=== PATIENT | male | born 1940 | race American Indian/Alaskan Native ===

== ENCOUNTER 2017-12-14 18:57 | Inpatient (IN) | payer OTHER ==
[2017-12-14 19:40] LABS: Basophils % (Auto) 0.2 % (0.0-1.8); Eosinophils % (Auto) 0.5 % (0.0-4.3); Hematocrit 46.8 % (35.5-45.6); Hemoglobin 14.7 gm/dl (11.8-15.2); Lymphocytes # (Auto) 0.8 K/mm3 (1.2-5.4); Lymphocytes % (Auto) 7.5 % (13.4-35.0); Mean Corpuscular HGB Conc 31 % (32-34); Mean Corpuscular Hemoglobin 28 pg (28-32); Mean Corpuscular Volume 90 fl (84-94); Monocytes % (Auto) 10.4 % (0.0-7.3); Platelet Count 114 K/mm3 (140-440); Red Blood Count 5.21 M/mm3 (3.65-5.03); Red Cell Distribution Width 16.3 % (13.2-15.2)
--- NOTE | 2017-12-14 20:25 | Emergency Department Report ---
Chief Complaint: Dyspnea/Respdistress Stated Complaint: DIFFICULTY BREATHING/SWELLING - HPI History of Present Illness: 77-year-old -Stateless male with a past medical history which appears to be CHF, hypertension, and diabetes. Comes in complaining of swelling of his testicles and lower extremities. He also complains of shortness of breathing. He reports he does not have a primary care provider. He reports he is not taking any medication. It appears that he was last seen here possibly in July. 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 - Exam Vital Signs: Vital Signs 12/14/17 19:13 Temperature 96.2 F L Pulse Rate 122 H Respiratory 22 Rate Blood Pressure 180/100 O2 Sat by Pulse 96 Oximetry Physical Exam: Gen. alert and oriented no acute distress but not able to complete sentences due to difficulty breathing. Cardiovascular. Tachycardic Respiratory. Decrease breath sounds bilateral with rails Abdomen soft and distended Extremities 3+ pitting edema to his thighs it appears that he has swelling of his testicles. Neuro alert and oriented Psych normal mood MSE screening note: Focused history and physical exam performed. Due to findings the following was ordered: Patient is appropriate to be seen in the main ER. ED Medical Decision Making - Lab Data Result diagrams: 12/14/17 19:25 ED Disposition for MSE Condition: Stable Referrals: LILIBETH HOLLINGSWORTH MD [Primary Care Provider] - 3-5 Days
[2017-12-14 20:29] LABS: Calcium 9.4 mg/dL (8.4-10.2)
[2017-12-14] MEDS ORDERED: NORMODYNE IV ONE (21:25)
--- NOTE | 2017-12-14 21:26 | Emergency Department Report ---
HPI - General Chief Complaint: Dyspnea/Respdistress Time Seen by Provider: 12/14/17 20:55 - HPI HPI: 77-year-old -[place] male presents to the emergency department, dropped off by a friend, with complaint of a 2 to three-day history of some shortness of breath that worsens with exertion and even longer lower extremity swelling. The patient has a history of not seeing a physician for many years until he was here and admitted for similar symptoms in July 2017. At that point the patient was found to have CHF with severe systolic dysfunction and dilated cardiomyopathy. Patient presents with very elevated blood sugar and does admit to a history of [id number] diabetes but says this was also discovered during his last visit. He is on warfarin but he does not of the reason why but his EKG today shows atrial fibrillation which may or may not be new, but does not match his previous EKG here. He denies any chest pain. He does not have a primary care physician or a supply person. He did not take anything for his symptoms prior to presentation. No recent travel or sick contacts at home. ED Past Medical Hx - Past Medical History Previous Medical History?: Yes Hx Hypertension: Yes Hx Diabetes: Yes - Surgical History Past Surgical History?: No - Social History Smoking Status: Never Smoker - Medications Home Medications: Home Medications Medication Instructions Recorded Confirmed Last Taken Type Amiodarone [Cordarone 200 MG TAB] 200 mg PO BID #60 tablet 07/27/17 Unknown Rx Aspirin [Aspirin BABY CHEW TAB] 81 mg PO QDAY #30 tab.chew 07/27/17 Unknown Rx Carvedilol [Coreg] 12.5 mg PO BID #60 tablet 07/27/17 Unknown Rx Furosemide [Lasix TAB] 40 mg PO QDAY #30 tablet 07/27/17 Unknown Rx Metolazone [Zaroxolyn] 5 mg PO QDAY #30 tablet 07/27/17 Unknown Rx Potassium Chloride [K-Dur] 20 meq PO QDAY #30 tablet 07/27/17 Unknown Rx Valsartan [Diovan] 160 mg PO BID #60 tablet 07/27/17 Unknown Rx Warfarin [Coumadin] 5 mg PO DAILY@1700 #30 tablet 07/27/17 Unknown Rx glipiZIDE [Glucotrol] 2.5 mg PO BIDDIAB #60 tablet 07/27/17 Unknown Rx hydrALAZINE [Apresoline TAB] 25 mg PO Q8HR #90 tablet 07/27/17 Unknown Rx ED Review of Systems ROS: Stated complaint: DIFFICULTY BREATHING/SWELLING Other details as noted in HPI Comment: All other systems reviewed and negative Constitutional: denies: chills, fever Eyes: denies: eye pain, eye discharge, vision change ENT: denies: ear pain, throat pain Respiratory: cough, shortness of breath, SOB with exertion Cardiovascular: edema. denies: chest pain Gastrointestinal: denies: abdominal pain, nausea, diarrhea Genitourinary: denies: urgency, dysuria Musculoskeletal: denies: back pain, joint swelling, arthralgia Skin: denies: rash, lesions Neurological: denies: headache, weakness, paresthesias Physical Exam - Physical Exam Vital Signs: Vital Signs 12/14/17 19:13 Temperature 96.2 F L Pulse Rate 122 H Respiratory 22 Rate Blood Pressure 180/100 O2 Sat by Pulse 96 Oximetry Physical Exam: GENERAL: The patient is well-developed well-nourished. HENT: Normocephalic. Atraumatic. Patient has moist mucous membranes. EYES: Extraocular motions are intact. Pupils equal reactive to light bilaterally. NECK: Supple. Trachea is midline. CHEST/LUNGS: Slightly coarse breath sounds. Tachypnea but no accessory muscle use. There is no respiratory distress noted. HEART/CARDIOVASCULAR: Irregularly irregular with tachycardia ABDOMEN: Abdomen is soft, nontender. Patient has normal bowel sounds. There is no abdominal distention. SKIN: 2+ pitting edema to the bilateral lower extremities. NEURO: The patient is awake, alert. The patient is cooperative. The patient has no focal neurologic deficits. The patient has normal speech. MUSCULOSKELETAL: There is no tenderness or deformity. There is no evidence of acute injury. ED Course Vital Signs 12/14/17 19:13 Temperature 96.2 F L Pulse Rate 122 H Respiratory 22 Rate Blood Pressure 180/100 O2 Sat by Pulse 96 Oximetry ED Medical Decision Making - Lab Data Result diagrams: 12/14/17 19:25 12/15/17 01:42 - EKG Data -: EKG Interpreted by Me - EKG Data When compared to previous EKG there are: changes noted (previous EKG was a sinus rhythm) Interpretation: other (atrial fibrillation with RVR at 104 bpm, incomplete right branch block, left anterior fascicular block, Q waves to the septal leads) - Radiology Data Radiology results: report reviewed, image reviewed interpreted by me: Chest x-ray shows cardiomegaly and ectatic aorta that is unchanged from July 2017. EXAM: NM LUNG SCAN PERF/VENT HISTORY: SOB, elevated dimer COMPARISON: Chest x-ray from the same date. TECHNIQUE: 15 millicuries xenon 133 given for the ventilation portion exam. 5 millicuries technetium 99 M MAA given for the perfusion portion of the study. FINDINGS: Mild heterogeneous uptake of tracer in both the ventilation and perfusion portions of the exam. No mismatched defect. IMPRESSION: Low probability exam for pulmonary embolus. Transcribed By: LMA Dictated By: LEANN BECK MD Electronically Authenticated By: LEANN BECK MD Signed Date/Time: 12/15/17 0018 - Medical Decision Making Patient presents with some shortness of breath and lower extremity swelling. He has a history of CHF and appears to be in a exacerbation of the CHF. Chest x -ray does not show any convincing pleural effusions but the patient does have 2- 3+ pitting edema to the bilateral lower extremities and a BNP of greater than 17 ,000. During his evaluation, the patient was also found to have hyperglycemia with a blood sugar greater than 500. He has an anion gap of about 25 and has some venous acidosis and all this is concerning for diabetic ketoacidosis. The patient was started on an insulin drip and will be admitted to the ICU. He had some hyperkalemia of 5.8 and went up to 6.3 but it has started to come down with the insulin drip, albuterol nebulized treatments, Kayexalate. The patient appears to be in atrial fibrillation based on his irregular rhythm and his EKG. There is no previous record of atrial fibrillation but the patient is on warfarin for an unknown reason and I suspect it is based on this. The patient will be admitted to the ICU and has been accepted for admission by the hospitalist, Dr. Clark. - Differential Diagnosis DKA, HHNK, CHF, PE, DE Critical Care Time: No Critical care attestation.: If time is entered above; I have spent that time in minutes in the direct care of this critically ill patient, excluding procedure time. ED Disposition Clinical Impression: Hypertensive urgency CHF exacerbation Qualifiers: Heart failure type: systolic Qualified Code(s): I50.23 - Acute on chronic systolic (congestive) heart failure DKA (diabetic ketoacidoses) Qualifiers: Diabetes mellitus type: type 2 Diabetes mellitus complication detail: without coma Qualified Code(s): E11.10 - Type 2 diabetes mellitus with ketoacidosis without coma Atrial fibrillation Qualifiers: Atrial fibrillation type: unspecified Qualified Code(s): I48.91 - Unspecified atrial fibrillation Disposition: 09 OP ADMIT IP TO THIS HOSP Is pt being admited?: Yes Condition: Fair Time of Disposition: 03:58
[2017-12-14] MEDS ORDERED: D50W (25GM) Syringe IV PRN (21:33)
[2017-12-14 21:41] LABS: INR 1.52 (0.87-1.13); Partial Thromboplastin Time 30.2 Sec. (24.2-36.6)
--- NOTE | 2017-12-14 21:57 | XRay Report ---
FINAL REPORT EXAM: XR CHEST ROUTINE 2V HISTORY: Shortness of breath TECHNIQUE: PA and lateral chest radiographs PRIORS: None. FINDINGS: No mediastinal shift. Cardiomegaly and aortic tortuosity and likely ectasia are present. No pneumothorax, effusion, or focal pulmonary opacity. No acute skeletal finding. IMPRESSION: No acute pulmonary finding. Cardiomegaly and aortic tortuosity and likely ectasia.
[2017-12-14] MEDS ORDERED: HumuLIN R 100 UNITS in NACL 0.9% 99 ML IV SCH (22:00)
[2017-12-14 22:16] LABS: Chol/HDL Ratio 7.71 %
[2017-12-14] MEDS ORDERED: LASIX IV ONE (22:17)
[2017-12-14 23:25] LABS: Calcium 9.1 mg/dL (8.4-10.2)
[2017-12-15] MEDS ORDERED: KIONEX PO ONE ×2 (00:10→12:00)
[2017-12-15] MEDS ORDERED: PROVENTIL IH ONE (00:10)
[2017-12-15] MEDS ORDERED: CALCIUM GLUCONATE 1,000 MG in NACL 0.9% 100 ML IV ONE (00:11)
--- NOTE | 2017-12-15 00:23 | Nuclear Medicine Report ---
FINAL REPORT EXAM: NM LUNG SCAN PERF/VENT HISTORY: SOB, elevated dimer COMPARISON: Chest x-ray from the same date. TECHNIQUE: 15 millicuries xenon 133 given for the ventilation portion exam. 5 millicuries technetium 99 M MAA given for the perfusion portion of the study. FINDINGS: Mild heterogeneous uptake of tracer in both the ventilation and perfusion portions of the exam. No mismatched defect. IMPRESSION: Low probability exam for pulmonary embolus.
[2017-12-15] MEDS ORDERED: ZOFRAN IV PRN (02:18)
[2017-12-15] MEDS ORDERED: TYLENOL PR PRN (02:26)
[2017-12-15] MEDS: HEPARIN SUB-Q SCH ×2 (03:57→17:00)
[2017-12-15 04:11] LABS: Blood Urea Nitrogen TNR mg/dL (9-20)
[2017-12-15 04:12] LABS: BUN/Creatinine Ratio TNR; Calcium TNR mg/dL (8.4-10.2); Hemolysis Index TNR
[2017-12-15] MEDS: D5/0.45NS 1,000 ML IV SCH ×2 (04:57→13:55)
[2017-12-15 05:08] LABS: Calcium 8.5 mg/dL (8.4-10.2)
[2017-12-15 05:09] LABS: Creatine Kinase MB 7.5 ng/mL (0.0-4.0)
--- NOTE | 2017-12-15 06:14 | History and Physical Report ---
CHIEF COMPLAINT: Shortness of breath. HISTORY OF PRESENTING ILLNESS: The patient is a 77-year-old male came in with about 2-3 day history of shortness of breath that is worse with exertion. Also, the patient complained of swelling of the lower extremity up to the perineal area involving the scrotum. The patient denies any chest pain. He said that he is on warfarin and also has some palpitations, which he attributed to his history of irregular heartbeat. The patient denies history of fever. Denies history of chills, nausea or vomiting. PAST MEDICAL HISTORY: Pertinent for hypertension, diabetes mellitus, congestive heart failure, irregular heartbeat. PAST SURGICAL HISTORY: Not known. FAMILY HISTORY: Noncontributory. SOCIAL HISTORY: The patient lives with family. Does not smoke, does not drink alcohol and does not use illicit drugs. MEDICATIONS: The patient is on amiodarone 200 mg by mouth twice daily, aspirin 81 mg by mouth daily, Coreg 12.5 mg by mouth twice daily, Lasix 40 mg by mouth daily, metolazone Zaroxolyn 5 mg by mouth daily, potassium chloride 20 mEq by mouth daily, Diovan 160 mg by mouth twice daily, Coumadin 5 mg by mouth daily, glipizide 2.5 mg by mouth twice daily, hydralazine 25 mg by mouth every 8 hours. ALLERGIES: There are no known drug allergies. REVIEW OF SYSTEMS: CONSTITUTIONAL: There is no fever, no chills, no diaphoresis. HEENT: There is headache or sore throat. CARDIOVASCULAR: There is no chest pain, ____ orthopnea. RESPIRATORY: There is shortness of breath. No cough. GASTROINTESTINAL: There is no nausea, no vomiting, no abdominal pain, diarrhea or constipation. NEUROLOGICAL: There is no numbness, no dizziness, no altered mental status. MUSCULOSKELETAL: There is no joint pain, but there is swelling of the lower extremities. DERMATOLOGICAL: There is no skin rash or itching. GENITOURINARY: There is no dysuria, hematuria or flank pain. Rest of system review is normal. PHYSICAL EXAMINATION: GENERAL: At the time of exam, the patient was found to be alert, oriented x 3 and not in acute distress. VITAL SIGNS: Shows temperature of 96.2 degrees Fahrenheit, pulse of 98, respirations 18, blood pressure 180/100, O2 sat of 96% of oxygen. HEENT: Showed pupils to be equal, round, reactive to light and accommodation. Extraocular muscles are intact. NECK: Supple with no JVD or carotid bruit. CARDIOVASCULAR: Showed normal first and second heart sounds with irregularly irregular rhythm with no murmurs. RESPIRATORY SYSTEM: Showed good air entry on both sides of the lungs with bibasilar rales. GASTROINTESTINAL SYSTEM: Show abdomen to be soft, nontender, no organomegaly or rigidity. NEUROLOGIC: Shows no focal deficits. MUSCULOSKELETAL: Shows swelling of both lower extremity up to the thigh level. DERMATOLOGICAL: Show no skin rash. GENITOURINARY: Show no costovertebral angle tenderness. PERTINENT LABORATORY AND IMAGING STUDIES: The patient has CBC done with normal white count, normal hemoglobin and slightly elevated hematocrit of 46.8 with CBC differential showing elevated monocyte count and elevated segmented neutrophils. Coagulation studies show slightly elevated INR of 1.52 with elevated D-dimer of 5303. The patient's ABG showed a low pH of 7.28 with chemistry showing low sodium of 129, elevated potassium level of 6.3, low chloride of 91, low CO2 of 19, BUN of 62 with creatinine of 1.8 and elevated blood glucose of 483. The patient's anion gap is about 19. The patient's magnesium levels show elevated value of 2.5 and the patient's troponin levels show a high value of 0.055 and brain natriuretic peptide level is elevated with a value of 17,105. IMAGING STUDIES: The patient has VQ scan done that shows low probability for pulmonary embolism and also the patient had chest x-ray shows cardiomegaly with aortic toxicity, which the radiologist says is likely an ectasia. DIAGNOSES: 1. Diabetic ketoacidosis. 2. Congestive heart failure exacerbation. 3. Hyperkalemia. 4. Atrial fibrillation with rate control. PLAN: The patient will be admitted to ICU and we will continue IV insulin drip protocol for treating DKA. The patient will be on Accu-Chek every hour and will have basic metabolic panel checked every ____ hours. The patient will continue on IV normal saline, insulin drip. The patient's fluid will be changed to D5 normal. When the blood glucose is below 250 mg/dL. The patient has already received a dose of Kayexalate in the Emergency Room, also has received 1 gram of calcium gluconate in the Emergency Room for treatment of hyperkalemia and the patient's potassium level will be monitored using basic metabolic panel to see if this is trending downwards. The patient will be on IV Lasix 40 mg daily for management of CHF and will be on nitro paste half-inch to anterior chest wall q. 6 hours. The patient will have cardiac enzymes, troponin level and CPK checked every 6 hours x 2 more level. The patient will have complete echocardiogram done in the morning and he will be on IV Zofran 4 mg every 8 hours for nausea and vomiting and Tylenol 650 mg rectally every 4 hours for fever and headache. The patient will remain n.p.o. until DKA is corrected and the patient's home medications will be reconciled and applied later on. JOB# [id number] OCN/NTS
[2017-12-15] MEDS: NITRO-BID 2% TP SCH ×3 (06:37→17:41)
[2017-12-15 08:39] LABS: Calcium 8.8 mg/dL (8.4-10.2)
[2017-12-15 09:28] LABS: BUN/Creatinine Ratio 43; Blood Urea Nitrogen 39 mg/dL (9-20); Hemolysis Index 10
[2017-12-15 09:54] LABS: Calcium 4.8 mg/dL (8.4-10.2)
[2017-12-15] MEDS ORDERED: LASIX IV SCH (10:00)
--- NOTE | 2017-12-15 10:42 | Event Note ---
Date: 12/15/17 Patient seen and examined. An additional 34 minutes spent after the patient was admitted this morning. We will continue the plan as outlined in the H&P. Patient still exhibits findings consistent with DKA. Restart IV insulin drip and continue IV fluid hydration. Patient will receive Kayexalate for the hyperkalemia. Additionally, patient will receive IV calcium for the hypocalcemia. Check ionized calcium levels. Follow-up the echocardiogram for the CHF.
[2017-12-15] MEDS ORDERED: CALCIUM GLUCONATE 2,000 MG in NACL 0.9% 100 ML IV ONE (12:00)
[2017-12-15 13:03] LABS: Creatine Kinase MB 4.9 ng/mL (0.0-4.0)
--- NOTE | 2017-12-15 13:32 | Consultation ---
History of Present Illness - Reason for Consult Consult date: 12/15/17 (pt was seen nad examined in ER. Consult dictated) Medications and Allergies Allergies Allergy/AdvReac Type Severity Reaction Status Date / Time No Known Allergies Allergy Verified 07/21/17 22:45 Home Medications Medication Instructions Recorded Confirmed Last Taken Type No Known Home Medications [No 12/15/17 12/15/17 Unknown History Reported Home Medications] Active Meds: Active Medications Acetaminophen (Tylenol) 650 mg KS Q4H PRN PRN Reason: For Pain/Fever/Headache Dextrose (D50w (25gm) Syringe) 0 ml IV PRN PRN PRN Reason: Hypoglycemia Furosemide (Lasix) 40 mg IV DAILY JOIE Last Admin: 12/15/17 09:42 Dose: 40 mg Heparin Sodium (Porcine) (Heparin) 5,000 unit SUB-Q Q12HR JOIE Last Admin: 12/15/17 03:57 Dose: 5,000 unit Insulin Human Regular 100 (units/ Sodium Chloride) 100 mls @ 5 mls/hr IV TITR JOIE; Protocol Last Titration: 12/15/17 12:30 Dose: 0 units/hr, 0 mls/hr Dextrose/Sodium Chloride (D5/0.45ns) 1,000 mls @ 125 mls/hr IV DIRECT JOIE Last Admin: 12/15/17 04:57 Dose: 125 mls/hr Nitroglycerin (Nitro-Bid 2%) 1 inch TP TIDNTG JOIE; Protocol Last Admin: 12/15/17 11:41 Dose: 1 inch Ondansetron HCl (Zofran) 4 mg IV Q8H PRN PRN Reason: Nausea And Vomiting Exam - Constitutional Vitals: Temp Pulse Resp BP Pulse Ox 98.6 F 90 18 156/102 98 12/15/17 08:02 12/15/17 12:00 12/15/17 12:00 12/15/17 12:00 12/15/17 12:00 Results - Labs CBC & Chem 7: 12/14/17 19:25 12/15/17 09:05 Labs: Abnormal lab results 12/14/17 12/14/17 12/14/17 Range/Units 19:25 20:01 20:01 RBC 5.21 H (3.65-5.03) M/mm3 Hct 46.8 H (35.5-45.6) % MCHC 31 L (32-34) % RDW 16.3 H (13.2-15.2) % Plt Count 114 L (140-440) K/mm3 Lymph % (Auto) 7.5 L (13.4-35.0) % [place] % (Auto) 10.4 H (0.0-7.3) % Lymph # 0.8 L (1.2-5.4) K/mm3 [place] # 1.0 H (0.0-0.8) K/mm3 Seg Neutrophils % 81.4 H (40.0-70.0) % Seg Neutrophils # 8.2 H (1.8-7.7) K/mm3 PT (12.2-14.9) Sec. INR (0.87-1.13) D-Dimer (0-234) ng/mlDDU VBG pH (7.320-7.420) Sodium 128 L (137-145) mmol/L Potassium 5.8 H (3.6-5.0) mmol/L Chloride 92.4 L (98-107) mmol/L Carbon Dioxide 18 L (22-30) mmol/L BUN 62 H (9-20) mg/dL Creatinine 1.7 H (0.8-1.5) mg/dL Glucose 507 H* (75-100) mg/dL POC Glucose (70-105) Calcium (8.4-10.2) mg/dL Magnesium (1.7-2.3) mg/dL Total Creatine Kinase (55-170) units/L CK-MB (CK-2) (0.0-4.0) ng/mL CK-MB (CK-2) Rel Index (0-4) Troponin T (0.00-0.029) ng/mL NT-Pro-B Natriuret Pep 76844 H (0-900) pg/mL HDL Cholesterol (40-59) mg/dL 12/14/17 12/14/17 12/14/17 Range/Units 21:15 21:15 21:19 RBC (3.65-5.03) M/mm3 Hct (35.5-45.6) % MCHC (32-34) % RDW (13.2-15.2) % Plt Count (140-440) K/mm3 Lymph % (Auto) (13.4-35.0) % [place] % (Auto) (0.0-7.3) % Lymph # (1.2-5.4) K/mm3 [place] # (0.0-0.8) K/mm3 Seg Neutrophils % (40.0-70.0) % Seg Neutrophils # (1.8-7.7) K/mm3 PT 19.2 H (12.2-14.9) Sec. INR 1.52 H (0.87-1.13) D-Dimer (0-234) ng/mlDDU VBG pH 7.288 L (7.320-7.420) Sodium (137-145) mmol/L Potassium (3.6-5.0) mmol/L Chloride (98-107) mmol/L Carbon Dioxide (22-30) mmol/L BUN (9-20) mg/dL Creatinine (0.8-1.5) mg/dL Glucose (75-100) mg/dL POC Glucose (70-105) Calcium (8.4-10.2) mg/dL Magnesium (1.7-2.3) mg/dL Total Creatine Kinase (55-170) units/L CK-MB (CK-2) (0.0-4.0) ng/mL CK-MB (CK-2) Rel Index (0-4) Troponin T 0.055 H (0.00-0.029) ng/mL NT-Pro-B Natriuret Pep (0-900) pg/mL HDL Cholesterol 14 L (40-59) mg/dL 12/14/17 12/14/17 12/14/17 Range/Units 22:11 22:11 22:17 RBC (3.65-5.03) M/mm3 Hct (35.5-45.6) % MCHC (32-34) % RDW (13.2-15.2) % Plt Count (140-440) K/mm3 Lymph % (Auto) (13.4-35.0) % [place] % (Auto) (0.0-7.3) % Lymph # (1.2-5.4) K/mm3 [place] # (0.0-0.8) K/mm3 Seg Neutrophils % (40.0-70.0) % Seg Neutrophils # (1.8-7.7) K/mm3 PT (12.2-14.9) Sec. INR (0.87-1.13) D-Dimer 5306.46 H (0-234) ng/mlDDU VBG pH (7.320-7.420) Sodium 128 L (137-145) mmol/L Potassium 5.9 H (3.6-5.0) mmol/L Chloride 89.8 L (98-107) mmol/L Carbon Dioxide 17 L (22-30) mmol/L BUN 62 H (9-20) mg/dL Creatinine 1.7 H (0.8-1.5) mg/dL Glucose 483 H (75-100) mg/dL POC Glucose (70-105) Calcium (8.4-10.2) mg/dL Magnesium 2.50 H (1.7-2.3) mg/dL Total Creatine Kinase (55-170) units/L CK-MB (CK-2) (0.0-4.0) ng/mL CK-MB (CK-2) Rel Index (0-4) Troponin T (0.00-0.029) ng/mL NT-Pro-B Natriuret Pep (0-900) pg/mL HDL Cholesterol (40-59) mg/dL 12/14/17 12/15/17 12/15/17 Range/Units 22:54 00:35 01:42 RBC (3.65-5.03) M/mm3 Hct (35.5-45.6) % MCHC (32-34) % RDW (13.2-15.2) % Plt Count (140-440) K/mm3 Lymph % (Auto) (13.4-35.0) % [place] % (Auto) (0.0-7.3) % Lymph # (1.2-5.4) K/mm3 [place] # (0.0-0.8) K/mm3 Seg Neutrophils % (40.0-70.0) % Seg Neutrophils # (1.8-7.7) K/mm3 PT (12.2-14.9) Sec. INR (0.87-1.13) D-Dimer (0-234) ng/mlDDU VBG pH (7.320-7.420) Sodium 129 L 133 L (137-145) mmol/L Potassium 6.3 H* 5.5 H (3.6-5.0) mmol/L Chloride 91.0 L 92.4 L (98-107) mmol/L Carbon Dioxide 19 L (22-30) mmol/L BUN 62 H 63 H (9-20) mg/dL Creatinine 1.8 H 2.1 H (0.8-1.5) mg/dL Glucose 483 H 327 H (75-100) mg/dL POC Glucose 425 H (70-105) Calcium (8.4-10.2) mg/dL Magnesium (1.7-2.3) mg/dL Total Creatine Kinase (55-170) units/L CK-MB (CK-2) (0.0-4.0) ng/mL CK-MB (CK-2) Rel Index (0-4) Troponin T (0.00-0.029) ng/mL NT-Pro-B Natriuret Pep (0-900) pg/mL HDL Cholesterol (40-59) mg/dL 12/15/17 12/15/17 12/15/17 Range/Units 02:12 03:10 04:24 RBC (3.65-5.03) M/mm3 Hct (35.5-45.6) % MCHC (32-34) % RDW (13.2-15.2) % Plt Count (140-440) K/mm3 Lymph % (Auto) (13.4-35.0) % [place] % (Auto) (0.0-7.3) % Lymph # (1.2-5.4) K/mm3 [place] # (0.0-0.8) K/mm3 Seg Neutrophils % (40.0-70.0) % Seg Neutrophils # (1.8-7.7) K/mm3 PT (12.2-14.9) Sec. INR (0.87-1.13) D-Dimer (0-234) ng/mlDDU VBG pH (7.320-7.420) Sodium (137-145) mmol/L Potassium (3.6-5.0) mmol/L Chloride (98-107) mmol/L Carbon Dioxide (22-30) mmol/L BUN (9-20) mg/dL Creatinine (0.8-1.5) mg/dL Glucose (75-100) mg/dL POC Glucose 407 H 238 H 167 H (70-105) Calcium (8.4-10.2) mg/dL Magnesium (1.7-2.3) mg/dL Total Creatine Kinase (55-170) units/L CK-MB (CK-2) (0.0-4.0) ng/mL CK-MB (CK-2) Rel Index (0-4) Troponin T (0.00-0.029) ng/mL NT-Pro-B Natriuret Pep (0-900) pg/mL HDL Cholesterol (40-59) mg/dL 12/15/17 12/15/17 12/15/17 Range/Units 04:30 04:30 04:30 RBC (3.65-5.03) M/mm3 Hct (35.5-45.6) % MCHC (32-34) % RDW (13.2-15.2) % Plt Count (140-440) K/mm3 Lymph % (Auto) (13.4-35.0) % [place] % (Auto) (0.0-7.3) % Lymph # (1.2-5.4) K/mm3 [place] # (0.0-0.8) K/mm3 Seg Neutrophils % (40.0-70.0) % Seg Neutrophils # (1.8-7.7) K/mm3 PT (12.2-14.9) Sec. INR (0.87-1.13) D-Dimer (0-234) ng/mlDDU VBG pH (7.320-7.420) Sodium 135 L (137-145) mmol/L Potassium 5.1 H (3.6-5.0) mmol/L Chloride (98-107) mmol/L Carbon Dioxide 17 L (22-30) mmol/L BUN 61 H (9-20) mg/dL Creatinine 1.7 H (0.8-1.5) mg/dL Glucose 175 H (75-100) mg/dL POC Glucose (70-105) Calcium (8.4-10.2) mg/dL Magnesium (1.7-2.3) mg/dL Total Creatine Kinase 181 H (55-170) units/L CK-MB (CK-2) 7.5 H (0.0-4.0) ng/mL CK-MB (CK-2) Rel Index 4.1 H (0-4) Troponin T 0.045 H (0.00-0.029) ng/mL NT-Pro-B Natriuret Pep 99565 H (0-900) pg/mL HDL Cholesterol (40-59) mg/dL 12/15/17 12/15/17 12/15/17 Range/Units 05:31 07:40 08:51 RBC (3.65-5.03) M/mm3 Hct (35.5-45.6) % MCHC (32-34) % RDW (13.2-15.2) % Plt Count (140-440) K/mm3 Lymph % (Auto) (13.4-35.0) % [place] % (Auto) (0.0-7.3) % Lymph # (1.2-5.4) K/mm3 [place] # (0.0-0.8) K/mm3 Seg Neutrophils % (40.0-70.0) % Seg Neutrophils # (1.8-7.7) K/mm3 PT (12.2-14.9) Sec. INR (0.87-1.13) D-Dimer (0-234) ng/mlDDU VBG pH (7.320-7.420) Sodium 135 L (137-145) mmol/L Potassium 7.8 H* D (3.6-5.0) mmol/L Chloride 97.7 L (98-107) mmol/L Carbon Dioxide (22-30) mmol/L BUN 62 H (9-20) mg/dL Creatinine (0.8-1.5) mg/dL Glucose (75-100) mg/dL POC Glucose 117 H 143 H (70-105) Calcium (8.4-10.2) mg/dL Magnesium (1.7-2.3) mg/dL Total Creatine Kinase (55-170) units/L CK-MB (CK-2) (0.0-4.0) ng/mL CK-MB (CK-2) Rel Index (0-4) Troponin T (0.00-0.029) ng/mL NT-Pro-B Natriuret Pep (0-900) pg/mL HDL Cholesterol (40-59) mg/dL 03/12/15/17 12/15/17 Range/Units 09:05 09:59 11:03 RBC (3.65-5.03) M/mm3 Hct (35.5-45.6) % MCHC (32-34) % RDW (13.2-15.2) % Plt Count (140-440) K/mm3 Lymph % (Auto) (13.4-35.0) % [place] % (Auto) (0.0-7.3) % Lymph # (1.2-5.4) K/mm3 [place] # (0.0-0.8) K/mm3 Seg Neutrophils % (40.0-70.0) % Seg Neutrophils # (1.8-7.7) K/mm3 PT (12.2-14.9) Sec. INR (0.87-1.13) D-Dimer (0-234) ng/mlDDU VBG pH (7.320-7.420) Sodium 135 L (137-145) mmol/L Potassium 7.7 H* (3.6-5.0) mmol/L Chloride 82.7 L (98-107) mmol/L Carbon Dioxide 13 L D (22-30) mmol/L BUN 39 H (9-20) mg/dL Creatinine (0.8-1.5) mg/dL Glucose (75-100) mg/dL POC Glucose 151 H 118 H (70-105) Calcium 4.8 L* D (8.4-10.2) mg/dL Magnesium (1.7-2.3) mg/dL Total Creatine Kinase (55-170) units/L CK-MB (CK-2) (0.0-4.0) ng/mL CK-MB (CK-2) Rel Index (0-4) Troponin T (0.00-0.029) ng/mL NT-Pro-B Natriuret Pep (0-900) pg/mL HDL Cholesterol (40-59) mg/dL 12/15/17 Range/Units 12:20 RBC (3.65-5.03) M/mm3 Hct (35.5-45.6) % MCHC (32-34) % RDW (13.2-15.2) % Plt Count (140-440) K/mm3 Lymph % (Auto) (13.4-35.0) % [place] % (Auto) (0.0-7.3) % Lymph # (1.2-5.4) K/mm3 [place] # (0.0-0.8) K/mm3 Seg Neutrophils % (40.0-70.0) % Seg Neutrophils # (1.8-7.7) K/mm3 PT (12.2-14.9) Sec. INR (0.87-1.13) D-Dimer (0-234) ng/mlDDU VBG pH (7.320-7.420) Sodium (137-145) mmol/L Potassium (3.6-5.0) mmol/L Chloride (98-107) mmol/L Carbon Dioxide (22-30) mmol/L BUN (9-20) mg/dL Creatinine (0.8-1.5) mg/dL Glucose (75-100) mg/dL POC Glucose (70-105) Calcium (8.4-10.2) mg/dL Magnesium (1.7-2.3) mg/dL Total Creatine Kinase (55-170) units/L CK-MB (CK-2) 4.9 H (0.0-4.0) ng/mL CK-MB (CK-2) Rel Index 4.4 H (0-4) Troponin T 0.030 H D (0.00-0.029) ng/mL NT-Pro-B Natriuret Pep (0-900) pg/mL HDL Cholesterol (40-59) mg/dL
[2017-12-15 14:16] LABS: Calcium 8.9 mg/dL (8.4-10.2)
[2017-12-15 15:50] LABS: Bilirubin,Urine NEG (Negative); Blood,Urine SM (Negative); Color,Urine Yellow (Yellow); Protein,Urine <15 mg/dL mg/dL (Negative); Urobilinogen,Urine < 2.0 mg/dL (<2.0)
[2017-12-15 15:55] LABS: Chloride, Urine 116.5 mmolL (110-250); Creatinine,Urine 17.4 mg/dL (0.1-20.0); Potassium, Urine 21.23 mmol/L
[2017-12-15 16:06] LABS: Calcium 9.2 mg/dL (8.4-10.2)
[2017-12-15 18:32] LABS: BUN/Creatinine Ratio TNR; Blood Urea Nitrogen TNR mg/dL (9-20)
[2017-12-15 18:33] LABS: Calcium TNR mg/dL (8.4-10.2); Hemolysis Index TNR
--- NOTE | 2017-12-15 21:18 | Consultation ---
REASON FOR CONSULTATION: Hyperkalemia and Acute renal failure. HISTORY OF PRESENT ILLNESS: This 77-year-old -[place] male with history of diabetes, hypertension, congestive heart failure, was brought to the Emergency Room for having shortness of breath and swelling of the lower extremities including his scrotal area. The patient is a poor historian, unable to obtain details. The patient denies seeing any primary care physicians or web site developer. PAST MEDICAL HISTORY: Diabetes, hypertension, congestive heart failure. FAMILY HISTORY: No family history of kidney failure. PERSONAL HISTORY: Denies smoking, alcohol, or drug abuse. ALLERGIES: No known allergies. HOME MEDICATIONS: Amiodarone 200 mg p.o. b.i.d., aspirin 81 mg a day, carvedilol 12.5 mg b.i.d., furosemide 40 mg a day, metolazone 5 mg a day, potassium chloride 20 mEq a day, valsartan 160 mg twice a day, warfarin 5 mg a day, glipizide 2.5 mg b.i.d., hydralazine 25 mg q.8h. REVIEW OF SYSTEMS: Denies chest pain at present time. Denies difficulty swallowing. Denies fever or chills. Denies abdomen pain, nausea, or vomiting. Complains of swelling of the legs. Other review of systems reviewed and negative. PHYSICAL EXAMINATION: GENERAL: The patient is alert, oriented to place, well-developed male. VITAL SIGNS: Blood pressure 156/102, pulse 90, afebrile. HEENT: Normocephalic. Pupils reactive. Oral mucosa dry. Lips noncyanotic. NECK: No JVD, no thyroid enlargement. No cervical lymph nodes palpable. LUNGS: Diminished breath sounds in bases. HEART: S1, S2 irregular. No pericardial rub. ABDOMEN: Soft, bowel sounds present, nontender. No masses palpable. EXTREMITIES: 3+ pitting edema, able to move all extremities. LABORATORY DATA: From 12/14/2017, sodium 129, potassium 6.3, chloride 91, CO2 19, BUN 62, creatinine 1.8, glucose 483. BNP 17,105. Labs from this morning, sodium 135, potassium 7.7, chloride 82, CO2 13, BUN 39, creatinine 0.9, glucose 118, calcium 4.8. No urine studies available at present time. ASSESSMENT AND PLAN: 1. Hyperkalemia. 2. Acute renal failure, most likely prerenal azotemia. 3. Diabetic ketoacidosis. 4. Hypocalcemia, rule out lab error. 5. Anasarca. 6. Congestive heart failure. Check echocardiogram. 7. Atrial fibrillation. 8. Hypertension, uncontrolled. Optimize blood pressure medications. The patient is on IV insulin drip, received Kayexalate. Follow up on potassium levels closely. Check magnesium and ionized calcium levels. Check urine studies as ordered. Adjust medications per renal function. Suggest IV diuretics with IV furosemide. Thank you for the consultation. JOB# [id number] BRYCE/DAVIDE FALLON
[2017-12-15 22:34] LABS: Calcium 8.5 mg/dL (8.4-10.2)
[2017-12-16] MEDS: HumuLIN R SUB-Q SCH ×3 (02:15→06:56)
[2017-12-16 05:56] LABS: Basophils % (Auto) 0.1 % (0.0-1.8); Eosinophils # (Auto) 0.1 K/mm3 (0.0-0.4); Eosinophils % (Auto) 0.5 % (0.0-4.3); Hematocrit 39.7 % (35.5-45.6); Hemoglobin 13.1 gm/dl (11.8-15.2); Lymphocytes # (Auto) 0.6 K/mm3 (1.2-5.4); Lymphocytes % (Auto) 5.4 % (13.4-35.0); Mean Corpuscular HGB Conc 33 % (32-34); Mean Corpuscular Hemoglobin 28 pg (28-32); Mean Corpuscular Volume 86 fl (84-94); Monocytes # (Auto) 1.2 K/mm3 (0.0-0.8); Monocytes % (Auto) 11.6 % (0.0-7.3); Red Cell Distribution Width 15.8 % (13.2-15.2)
[2017-12-16 06:05] LABS: Platelet Count 90 K/mm3 (140-440)
[2017-12-16] MEDS: HEPARIN SUB-Q SCH ×2 (06:38→09:35)
[2017-12-16 06:41] LABS: Calcium 8.6 mg/dL (8.4-10.2)
[2017-12-16] MEDS: NITRO-BID 2% TP SCH (06:45)
--- NOTE | 2017-12-16 09:07 | Progress Note ---
Assessment and Plan Assessment and plan: Patient is a 77-year-old man with a history of hypertension, is independent diabetes mellitus, dilated cardiomyopathy, CHF and atrial fibrillation on warfarin who presented with shortness of breath and was found to be DKA and started on insulin drip. He was downgraded from ICU to medical floor stopped overnight (will review orders) Portable chest x-ray read as no acute findings VQ scan is read as low probability PE History Interval history: Patient was seen and examined. Follow-up on current diagnosis of DKA. Overnight uneventful. Patient denies any chest pain, shortness breath, nausea/ vomiting or severe headaches. Imaging, nursing note, chart, labs and old chart reviewed. Discussed with patient. Pt seen sleeping and laying flat on one pillow (?chf). He does have BLE pitting edema. In the Acute medical floor, not on insulin drip or in ICU. I do not know the details, please refer to Dr. Ilya Abdi, who cared for patient yesterday. Hospitalist Physical - Physical exam Narrative exam: GEN: WDWN, NAD, AWAKE, ALERT, ORIENTATED 3 HEENT: NCAT, EOMI, PERRL, OP Clear NECK: supple, no adenopathy, no thyromegaly, equivocal JVD CVS/HEART: irregular irregular, NORMAL S1S2, pulses present bilaterally CHEST/LUNGS: CTA B, Symmetrical chest expansion, good air entry bilaterally GI/Abdomen: soft, NTND, good bowel sounds, no guarding or rebound /Bladder: no suprapubic tenderness, no CVA or paraspinal tenderness EXT/Skin: + 2 ble pitting edema no obvious rash MSK: FROM x 4 Neuro: CN 2-12 grossly intact, no new focal deficits Psych: calm - Constitutional Vitals: Temp Pulse Resp BP Pulse Ox 97.6 F 92 H 20 167/120 96 12/16/17 07:58 12/16/17 08:03 12/16/17 07:58 12/16/17 08:03 12/16/17 08:03 Results - Labs CBC & Chem 7: 12/16/17 04:38 12/16/17 04:38 Labs: Laboratory Last Values WBC 10.4 K/mm3 (4.5-11.0) 12/16/17 04:38 RBC 4.60 M/mm3 (3.65-5.03) 12/16/17 04:38 Hgb 13.1 gm/dl (11.8-15.2) 12/16/17 04:38 Hct 39.7 % (35.5-45.6) D 12/16/17 04:38 MCV 86 fl (84-94) 12/16/17 04:38 MCH 28 pg (28-32) 12/16/17 04:38 MCHC 33 % (32-34) 12/16/17 04:38 RDW 15.8 % (13.2-15.2) H 12/16/17 04:38 Plt Count 90 K/mm3 (140-440) L 12/16/17 04:38 Lymph % (Auto) 5.4 % (13.4-35.0) L 12/16/17 04:38 [place] % (Auto) 11.6 % (0.0-7.3) H 12/16/17 04:38 Eos % (Auto) 0.5 % (0.0-4.3) 12/16/17 04:38 Baso % (Auto) 0.1 % (0.0-1.8) 12/16/17 04:38 Lymph # 0.6 K/mm3 (1.2-5.4) L 12/16/17 04:38 [place] # 1.2 K/mm3 (0.0-0.8) H 12/16/17 04:38 Eos # 0.1 K/mm3 (0.0-0.4) 12/16/17 04:38 Baso # 0.0 K/mm3 (0.0-0.1) 12/16/17 04:38 Seg Neutrophils % 82.4 % (40.0-70.0) H 12/16/17 04:38 Seg Neutrophils # 8.6 K/mm3 (1.8-7.7) H 12/16/17 04:38 PT 19.2 Sec. (12.2-14.9) H 12/14/17 21:19 INR 1.52 (0.87-1.13) H 12/14/17 21:19 APTT 30.2 Sec. (24.2-36.6) 12/14/17 21:19 D-Dimer 5306.46 ng/mlDDU (0-234) H 12/14/17 22:17 VBG pH 7.288 (7.320-7.420) L 12/14/17 21:15 Sodium 135 mmol/L (137-145) L 12/16/17 04:38 Potassium 3.4 mmol/L (3.6-5.0) L 12/16/17 04:38 Chloride 96.6 mmol/L (98-107) L 12/16/17 04:38 Carbon Dioxide 20 mmol/L (22-30) L 12/16/17 04:38 Anion Gap 22 mmol/L 12/16/17 04:38 BUN 58 mg/dL (9-20) H 12/16/17 04:38 Creatinine 1.9 mg/dL (0.8-1.5) H 12/16/17 04:38 Estimated GFR 42 ml/min 12/16/17 04:38 BUN/Creatinine Ratio 31 % 12/16/17 04:38 Glucose 139 mg/dL (75-100) H 12/16/17 04:38 POC Glucose 140 (70-105) H 12/16/17 06:56 Calcium 8.6 mg/dL (8.4-10.2) 12/16/17 04:38 Phosphorus 4.20 mg/dL (2.5-4.5) 12/14/17 22:11 Magnesium 2.50 mg/dL (1.7-2.3) H 12/14/17 22:11 Total Creatine Kinase 109 units/L (55-170) 12/15/17 12:20 CK-MB (CK-2) 4.9 ng/mL (0.0-4.0) H 12/15/17 12:20 CK-MB (CK-2) Rel Index 4.4 (0-4) H 12/15/17 12:20 Troponin T 0.030 ng/mL (0.00-0.029) H D 12/15/17 12:20 NT-Pro-B Natriuret Pep 94076 pg/mL (0-900) H 12/15/17 04:30 Triglycerides 99 mg/dL (2-149) 12/14/17 21:15 Cholesterol 108 mg/dL (50-199) 12/14/17 21:15 LDL Cholesterol Direct 53 mg/dL (50-130) 12/14/17 21:15 HDL Cholesterol 14 mg/dL (40-59) L 12/14/17 21:15 Cholesterol/HDL Ratio 7.71 % 12/14/17 21:15 Urine Color Yellow (Yellow) 12/15/17 15:28 Urine Turbidity Clear (Clear) 12/15/17 15:28 Urine pH 5.0 (5.0-7.0) 12/15/17 15:28 Ur Specific [place] 1.006 (1.003-1.030) 12/15/17 15:28 Urine Protein <15 mg/dl mg/dL (Negative) 12/15/17 15:28 Urine Glucose (UA) Neg mg/dL (Negative) 12/15/17 15:28 Urine Ketones Neg mg/dL (Negative) 12/15/17 15:28 Urine Blood Sm (Negative) 12/15/17 15:28 Urine Nitrite Neg (Negative) 12/15/17 15:28 Urine Bilirubin Neg (Negative) 12/15/17 15:28 Urine Urobilinogen < 2.0 mg/dL (<2.0) 12/15/17 15:28 Ur Leukocyte Esterase Neg (Negative) 12/15/17 15:28 Urine Osmolality 336 Mosm/kg 12/15/17 15:28 Urine Creatinine 17.4 mg/dL (0.1-20.0) 12/15/17 15:28 Urine Sodium 106 mmol/L 12/15/17 15:28 Urine Potassium 21.23 mmol/L 12/15/17 15:28 Urine Chloride 116.5 mmolL (110-250) 12/15/17 15:28
[2017-12-16] MEDS ORDERED: D50W (25GM) Syringe IV PRN ×2 (09:13→10:00)
[2017-12-16] MEDS ORDERED: LASIX PO SCH (10:00)
[2017-12-16] MEDS ORDERED: TYLENOL PO PRN (10:00)
[2017-12-16] MEDS ORDERED: NORMODYNE IV PRN (10:00)
[2017-12-16] MEDS ORDERED: REGLAN IV PRN (10:00)
[2017-12-16] MEDS: LANTUS SUB-Q SCH (10:49)
--- NOTE | 2017-12-16 11:21 | Progress Note ---
Assessment and Plan - Patient Problems (1) Acute renal failure Current Visit: Yes Status: Acute Plan to address problem: BUN-58/Scr 1.9 today--may be prerenal or cardiorenal syndrome. Pt has significant peripheral edema - urinalysis no proteinuria, doubt nephrotic syndrome. Most likely anasarca due to Pulmonary HTN with right heart failure. Severe [id number]%. S/P hyperkalemia-K- better--slightly low-pt is getting diuretics-- monitor. Check renal ultrasound. Suggest IV diuretics while monitoring renal function. Adjust meds per renal function. (2) Anasarca Current Visit: Yes Status: Chronic (3) Acute on chronic systolic heart failure Current Visit: Yes Status: Acute Plan to address problem: cardiology notes , Echocardiogram findings reviewed (4) Atrial fibrillation Current Visit: Yes Status: Acute (5) Moderate to severe pulmonary hypertension Current Visit: Yes Status: Acute (6) Hypertension Current Visit: No Status: Chronic Plan to address problem: not at goal--optimise BP meds. Consider Spironolactone if K remains ok. (7) Diabetes mellitus with hyperglycemia Current Visit: Yes Status: Chronic Qualifiers: Diabetes mellitus type: type 2 (8) Thrombocytopenia Current Visit: No Status: Acute Subjective Date of service: 12/16/17 Interval history: pt is more alert ramirez yesterday, SOB better, still having swelling of legs, does not know his doctors names. Objective - Vital Signs Vital signs: Vital Signs - 12hr 12/16/17 12/16/17 12/16/17 07:58 08:02 08:03 Temperature 97.6 F Pulse Rate 81 98 H 92 H Respiratory 20 Rate Blood Pressure 158/127 168/112 167/120 O2 Sat by Pulse 100 97 96 Oximetry 12/16/17 09:11 Temperature Pulse Rate Respiratory 20 Rate Blood Pressure O2 Sat by Pulse Oximetry - General Appearance General appearance: well-developed, obese EENT: mucous membranes moist Neck: no JVD Respiratory: Present: Decreased Breath Sounds Cardiology: irregular Gastrointestinal: normoactive bowel sounds Musculoskeletal: other (anasarca) Psychiatric: cooperative - Lab 12/16/17 04:38 12/16/17 04:38 Most recent lab results Calcium 8.6 mg/dL (8.4-10.2) 12/16/17 04:38 Phosphorus 4.20 mg/dL (2.5-4.5) 12/14/17 22:11 Magnesium 2.50 mg/dL (1.7-2.3) H 12/14/17 22:11 Urine Creatinine 17.4 mg/dL (0.1-20.0) 12/15/17 15:28 Urine Sodium 106 mmol/L 12/15/17 15:28
[2017-12-16] MEDS ORDERED: HumuLIN R SUB-Q SCH (11:30)
[2017-12-16] MEDS: HumaLOG SUB-Q SCH ×3 (12:16→23:25)
--- NOTE | 2017-12-16 14:39 | Consultation ---
History of Present Illness Consult date: 12/16/17 Consult reason: congestive heart failure History of present illness: The patient is a 77-year-old man with a history of hypertension who was evaluated in this hospital 3 months ago for symptoms of heart failure. An echocardiogram demonstrated a severe cardiomyopathy with ejection fraction 20-25 %. It was also severe pulmonary hypertension, pulmonary artery systolic pressure of 69. After heart failure treatment, a Persantine thallium stress test reported no reversible ischemia. Patient was discharged on routine heart failure medical therapy. He presents to the hospital at this time with increasing shortness of breath. He states after his last admission, there was no outpatient follow-up and he stopped taking medications when they ran out. He currently has 2-3+ bilateral lower extremity edema, distended abdomen and clinical picture consistent with anasarca. His ECG on this presentation reveals atrial fibrillation, which is of uncertain duration. 3 months ago, his ECG was a sinus rhythm with first-degree AV block and frequent PACs. Echocardiogram today shows a persistent cardiomyopathy with ejection fraction 20%, with severe dilatation of the right heart chambers, moderate tricuspid regurgitation and severe pulmonary hypertension with pulmonary artery systolic pressure at this time 71. An additional significant finding is a linear echodensity in the descending aorta, of uncertain significance. Past History Past Medical History: heart failure, hypertension Medications and Allergies Allergies Allergy/AdvReac Type Severity Reaction Status Date / Time No Known Allergies Allergy Verified 07/21/17 22:45 Home Medications Medication Instructions Recorded Confirmed Last Taken Type No Known Home Medications [No 12/15/17 12/15/17 Unknown History Reported Home Medications] Active Meds: Active Medications Acetaminophen (Tylenol) 650 mg PO Q6H PRN PRN Reason: Non Cardiac Pain or Temp>100.5 Dextrose (D50w (25gm) Syringe) 50 ml IV PRN PRN PRN Reason: Hypoglycemia Furosemide (Lasix) 40 mg PO QDAY [facility] Last Admin: 12/16/17 10:50 Dose: 40 mg Heparin Sodium (Porcine) (Heparin) 5,000 unit SUB-Q Q12HR [facility] Last Admin: 12/16/17 09:35 Dose: 5,000 unit Insulin Glargine (Lantus) 10 units SUB-Q QAMDIAB [facility] Last Admin: 12/16/17 10:49 Dose: 10 units Insulin Human Lispro (Humalog) 0 unit SUB-Q [facility]; Protocol Last Admin: 12/16/17 12:16 Dose: 4 unit Labetalol HCl (Normodyne) 10 mg IV Q4H PRN PRN Reason: Blood Pressure Last Admin: 12/16/17 12:33 Dose: 10 mg Metoclopramide HCl (Reglan) 10 mg IV Q8H PRN PRN Reason: Nausea And Vomiting Ondansetron HCl (Zofran) 4 mg IV Q8H PRN PRN Reason: Nausea And Vomiting Review of Systems Cardiovascular: orthopnea, edema, shortness of breath, no chest pain, no palpitations, no rapid/irregular heart beat, no syncope, no lightheadedness Physical Examination Vital Signs Temp Pulse Resp BP Pulse Ox 96.2 F L 122 H 22 180/100 96 12/14/17 19:13 12/14/17 19:13 12/14/17 19:13 12/14/17 19:13 12/14/17 19:13 General appearance: mild distress HEENT: Positive: PERRL Neck: Positive: neck supple Cardiac: Positive: irregularly irregular Lungs: Positive: Decreased Breath Sounds, Rales Neuro: Positive: Grossly Intact Abdomen: Positive: Ascites, Distended Male genitourinary: Positive: deferred Skin: Positive: Clear Extremities: Present: +3 Edema Results 12/16/17 04:38 12/16/17 04:38 CBC 12/16/17 Range/Units 04:38 WBC 10.4 (4.5-11.0) K/mm3 RBC 4.60 (3.65-5.03) M/mm3 Hgb 13.1 (11.8-15.2) gm/dl Hct 39.7 D (35.5-45.6) % Plt Count 90 L (140-440) K/mm3 Lymph # 0.6 L (1.2-5.4) K/mm3 Teller # 1.2 H (0.0-0.8) K/mm3 Eos # 0.1 (0.0-0.4) K/mm3 Baso # 0.0 (0.0-0.1) K/mm3 Comprehensive Metabolic Panel 12/15/17 12/15/17 12/15/17 Range/Units 15:19 21:59 Unknown Sodium 135 L 137 TNR (137-145) mmol/L Potassium 4.6 3.6 D TNR (3.6-5.0) mmol/L Chloride 96.4 L 96.1 L TNR (98-107) mmol/L Carbon Dioxide 17 L D 22 TNR (22-30) mmol/L BUN 60 H 57 H TNR (9-20) mg/dL Creatinine 1.9 H 2.0 H TNR (0.8-1.5) mg/dL Glucose 91 149 H TNR (75-100) mg/dL Calcium 9.2 8.5 TNR (8.4-10.2) mg/dL 12/16/17 Range/Units 04:38 Sodium 135 L (137-145) mmol/L Potassium 3.4 L (3.6-5.0) mmol/L Chloride 96.6 L (98-107) mmol/L Carbon Dioxide 20 L (22-30) mmol/L BUN 58 H (9-20) mg/dL Creatinine 1.9 H (0.8-1.5) mg/dL Glucose 139 H (75-100) mg/dL Calcium 8.6 (8.4-10.2) mg/dL EKG interpretations - Telemetry EKG Rhythm: Atrial Fibrillation Assessment and Plan - Patient Problems (1) Acute on chronic systolic heart failure Current Visit: Yes Status: Acute Plan to address problem: We will treat the patient aggressively with intravenous diuretics, afterload reducing agents, beta blockers and oral antiplatelet therapy. We will start a trial of intravenous milrinone. (2) Atrial fibrillation Current Visit: Yes Status: Acute Plan to address problem: Rate control of atrial fibrillation, followed by oral anticoagulation therapy. (3) Moderate to severe pulmonary hypertension Current Visit: Yes Status: Acute Plan to address problem: Pulmonary consultation for further assessment and management of severe pulmonary hypertension and evidence of cor pulmonale. (4) Dissection of descending thoracic aorta Current Visit: Yes Status: Acute Plan to address problem: Linear echodensity in the thoracic descending aorta, of uncertain significance. We will get an ultrasound of the descending and abnormal aorta for further assessment.
[2017-12-16] MEDS ORDERED: MILRINONE-D5W 20 MG/100 ML 20 MG/100 ML BAG IV SCH ×2 (15:00→16:23)
[2017-12-16] MEDS ORDERED: DIOVAN PO SCH (15:00)
[2017-12-16] MEDS: ELIQUIS PO SCH ×2 (16:09→23:25)
[2017-12-16] MEDS: PROCARDIA XL PO SCH (16:09)
[2017-12-16] MEDS: ISORDIL TITRADOSE PO SCH ×2 (16:09→23:21)
[2017-12-16] MEDS: APRESOLINE PO SCH ×2 (16:09→23:21)
[2017-12-16] MEDS: COREG PO SCH ×2 (16:14→23:21)
[2017-12-16] MEDS: LASIX IV SCH (17:16)
--- NOTE | 2017-12-16 18:45 | Ultrasound Report ---
FINAL REPORT EXAM: US RENAL BILAT HISTORY: ARF TECHNIQUE: Ultrasound of the kidneys PRIORS: None. FINDINGS: Examination the kidneys demonstrates both to be normal in size and have normal cortical echogenicity and thickness. The right and left kidneys measure 11.0 cm and 11.0 cm in craniocaudal length, respectively. No evidence for calculi, hydronephrosis, or solid mass is seen in either kidney. Incidental ascites in the abdomen is noted. There is a multi septated cyst in the posterior upper pole right kidney measuring 3.4 x 4.9 x 2.9 cm. The urinary bladder is not optimally distended but shows no intraluminal abnormality or wall thickening. IMPRESSION: 1. mildly complex cyst in the upper pole posteriorly of the right kidney. MRI is warranted. 2. Incidental ascites.
[2017-12-17] MEDS: MILRINONE-D5W 20 MG/100 ML 20 MG/100 ML BAG IV SCH ×3 (00:30→19:32)
[2017-12-17] MEDS: LASIX IV SCH (06:49)
[2017-12-17] MEDS: APRESOLINE PO SCH ×3 (06:50→22:54)
[2017-12-17] MEDS: ISORDIL TITRADOSE PO SCH ×3 (06:50→22:54)
[2017-12-17 07:42] LABS: Hemoglobin 11.6 gm/dl (11.8-15.2); Mean Corpuscular HGB Conc 33 % (32-34); Mean Corpuscular Hemoglobin 28 pg (28-32); Mean Corpuscular Volume 85 fl (84-94); Platelet Count 106 K/mm3 (140-440); Red Blood Count 4.13 M/mm3 (3.65-5.03); Red Cell Distribution Width 15.7 % (13.2-15.2)
[2017-12-17] MEDS: LANTUS SUB-Q SCH (08:00)
[2017-12-17] MEDS: PROCARDIA XL PO SCH (10:00)
[2017-12-17] MEDS: COREG PO SCH ×2 (10:00→22:53)
--- NOTE | 2017-12-17 10:33 | Progress Note ---
Assessment and Plan [id number]-[id number]-[id number], LVEF 20% Acute systolic heart failure Severe pulmonary hypertension Enlarged thoracic aorta with evidence of a linear echodensity noted on echo Acute renal failure Permanent atrial fibrillation on eliquis Hypokalemia Type II DM Systemic Hypertension (BP 180/100 on admission) Poor historian Recommendations: Discontinue IV lasix Awaiting aortic US findings Continue IV milrinone Subjective Date of service: 12/17/17 Principal diagnosis: CHF Interval history: Patient is a very poor historian Tele is showing atrial fibrillation Objective Vital Signs Temp Pulse Pulse Resp BP Pulse Ox 12/17/17 06:50 77 125/64 12/17/17 04:08 98.1 F 77 18 125/64 96 12/16/17 23:48 98.4 F 68 18 117/60 99 12/16/17 23:21 80 138/98 12/16/17 22:00 75 18 12/16/17 19:23 76 12/16/17 19:07 98.1 F 80 18 138/98 97 12/16/17 17:15 80 160/117 92 12/16/17 16:14 85 162/111 12/16/17 16:09 85 162/111 12/16/17 16:02 85 20 95 12/16/17 13:30 98.1 F 69 20 142/105 91 12/16/17 12:33 95 H 193/125 12/16/17 12:29 63 180/127 93 12/16/17 12:18 95 H 193/125 97 - Physical Examination HEENT: Positive: PERRL Neck: Positive: neck supple Cardiac: Positive: irregularly irregular Lungs: Positive: Decreased Breath Sounds Neuro: Positive: Grossly Intact Abdomen: Positive: Ascites, Distended Skin: Positive: Clear Extremities: Present: +3 Edema - Labs and Meds CBC 12/17/17 Range/Units 07:19 WBC 10.2 (4.5-11.0) K/mm3 RBC 4.13 (3.65-5.03) M/mm3 Hgb 11.6 L (11.8-15.2) gm/dl Hct 35.0 L (35.5-45.6) % Plt Count 106 L (140-440) K/mm3 Comprehensive Metabolic Panel 12/17/17 Range/Units 07:19 Sodium 142 D (137-145) mmol/L Potassium 2.8 L* (3.6-5.0) mmol/L Chloride 99.6 (98-107) mmol/L Carbon Dioxide 23 (22-30) mmol/L BUN 64 H (9-20) mg/dL Creatinine 2.6 H (0.8-1.5) mg/dL Glucose 151 H (75-100) mg/dL Calcium 8.0 L (8.4-10.2) mg/dL
[2017-12-17] MEDS: HumaLOG SUB-Q SCH ×4 (10:39→22:53)
[2017-12-17] MEDS ORDERED: K-DUR PO ONE ×2 (15:11→16:12)
[2017-12-17] MEDS: K-DUR PO SCH (15:17)
[2017-12-17] MEDS: ELIQUIS PO SCH ×2 (15:18→22:53)
--- NOTE | 2017-12-17 15:30 | Progress Note ---
Assessment and Plan Impression: * Acute kidney injury secondary to cardiorenal syndrome * Acute systolic heart failure * Cardiomyopathy - LVEF 20% * Anasarca * Atrial fibrillation * Pulmonary hypertension * Type II DM * Hypokalemia Plan: * Renal prognosis is guarded * Dobutamine gtt per cardiology * Note Lasix held today by cardiology * Monitor volume status; diuresis prn * Replete lytes prn * Avoid potential nephrotoxins * Strict I/O * Fluid restricted diet Subjective Date of service: 12/17/17 Principal diagnosis: CHF Objective - Vital Signs Vital signs: Vital Signs - 12hr 12/17/17 12/17/17 12/17/17 04:08 06:50 10:00 Temperature 98.1 F Pulse Rate 77 77 88 Respiratory 18 Rate Blood Pressure 125/64 125/64 O2 Sat by Pulse 96 Oximetry 12/17/17 12/17/17 12/17/17 13:08 15:16 15:17 Temperature Pulse Rate 84 84 Respiratory 18 Rate Blood Pressure 124/72 120/74 O2 Sat by Pulse Oximetry - General Appearance General appearance: well-developed, well-nourished, other (anasarca) EENT: ATNC Respiratory: Present: Decreased Breath Sounds Cardiology: regular, S1S2 Gastrointestinal: other (flank edema) Integumentary: no rash Neurologic: no focal deficit Musculoskeletal: other (2+ edema) Psychiatric: cooperative - Lab 12/17/17 07:19 12/17/17 07:19 Most recent lab results Calcium 8.0 mg/dL (8.4-10.2) L 12/17/17 07:19 Phosphorus 4.20 mg/dL (2.5-4.5) 12/14/17 22:11 Magnesium 2.50 mg/dL (1.7-2.3) H 12/14/17 22:11 Urine Creatinine 17.4 mg/dL (0.1-20.0) 12/15/17 15:28 Urine Sodium 106 mmol/L 12/15/17 15:28
--- NOTE | 2017-12-17 15:31 | Progress Note ---
Assessment and Plan Assessment and plan: Patient is a 77-year-old man with a history of hypertension, diabetes mellitus, dilated cardiomyopathy, CHF and atrial fibrillation on warfarin who presented with shortness of breath. He was found to be in DKA and started on insulin drip. He was downgraded from ICU to medical floor stopped overnight. Portable chest x-ray read as no acute findings VQ scan is read as low probability PE -DKA: Start long acting insulin, add fast acting sliding-scale, stop dextrose IV fluids, recheck BMP -Acute on Chronic systolic heart failure: Continue Lasix -Hypertension urgency: Treat with IV labetalol -Atrial fibrillation on anticoagulation/Eliquis -Acute on Chronic kidney disease stage IV: Consulted nephrology -DVT/GI prophylaxis reviewed, on Eliquis 12/17/17: Move to telemetry yesterday to start Primacor drip per Cardiology. Renal function has worsened today, lasix decreased, Nephrology is following. ECHO reviewed and then he went for Aortic ultrasound which Cardiology is following. Hypokalemia, will replace and recheck in am. History Interval history: Patient was seen and examined. Follow-up on current diagnosis of DKA. Overnight uneventful. Patient denies any chest pain, shortness breath, nausea/ vomiting or severe headaches. Imaging, nursing note, chart, labs and old chart reviewed. Discussed with patient. Pt seen sleeping and laying flat on one pillow (?chf). He does have BLE pitting edema. In the Acute medical floor, not on insulin drip or in ICU. I do not know the details, please refer to Dr. Ilya Abdi, who cared for patient yesterday. Hospitalist Physical - Physical exam Narrative exam: GEN: WDWN, NAD, AWAKE, ALERT, ORIENTATED 3 HEENT: NCAT, EOMI, PERRL, OP Clear NECK: supple, no adenopathy, no thyromegaly, equivocal JVD CVS/HEART: irregular irregular, NORMAL S1S2, pulses present bilaterally CHEST/LUNGS: CTA B, Symmetrical chest expansion, good air entry bilaterally GI/Abdomen: soft, NTND, good bowel sounds, no guarding or rebound /Bladder: no suprapubic tenderness, no CVA or paraspinal tenderness EXT/Skin: + 2 ble pitting edema no obvious rash MSK: FROM x 4 Neuro: CN 2-12 grossly intact, no new focal deficits Psych: calm - Constitutional Vitals: Temp Pulse Resp BP Pulse Ox 98.1 F 84 18 120/74 96 12/17/17 04:08 12/17/17 15:17 12/17/17 13:08 12/17/17 15:17 12/17/17 04:08 Results - Labs CBC & Chem 7: 12/17/17 07:19 12/17/17 07:19 Labs: Laboratory Last Values WBC 10.2 K/mm3 (4.5-11.0) 12/17/17 07:19 RBC 4.13 M/mm3 (3.65-5.03) 12/17/17 07:19 Hgb 11.6 gm/dl (11.8-15.2) L 12/17/17 07:19 Hct 35.0 % (35.5-45.6) L 12/17/17 07:19 MCV 85 fl (84-94) 12/17/17 07:19 MCH 28 pg (28-32) 12/17/17 07:19 MCHC 33 % (32-34) 12/17/17 07:19 RDW 15.7 % (13.2-15.2) H 12/17/17 07:19 Plt Count 106 K/mm3 (140-440) L 12/17/17 07:19 Lymph % (Auto) 5.4 % (13.4-35.0) L 12/16/17 04:38 [place] % (Auto) 11.6 % (0.0-7.3) H 12/16/17 04:38 Eos % (Auto) 0.5 % (0.0-4.3) 12/16/17 04:38 Baso % (Auto) 0.1 % (0.0-1.8) 12/16/17 04:38 Lymph # 0.6 K/mm3 (1.2-5.4) L 12/16/17 04:38 [place] # 1.2 K/mm3 (0.0-0.8) H 12/16/17 04:38 Eos # 0.1 K/mm3 (0.0-0.4) 12/16/17 04:38 Baso # 0.0 K/mm3 (0.0-0.1) 12/16/17 04:38 Seg Neutrophils % 82.4 % (40.0-70.0) H 12/16/17 04:38 Seg Neutrophils # 8.6 K/mm3 (1.8-7.7) H 12/16/17 04:38 PT 19.2 Sec. (12.2-14.9) H 12/14/17 21:19 INR 1.52 (0.87-1.13) H 12/14/17 21:19 APTT 30.2 Sec. (24.2-36.6) 12/14/17 21:19 D-Dimer 5306.46 ng/mlDDU (0-234) H 12/14/17 22:17 VBG pH 7.288 (7.320-7.420) L 12/14/17 21:15 Sodium 142 mmol/L (137-145) D 12/17/17 07:19 Potassium 2.8 mmol/L (3.6-5.0) L* 12/17/17 07:19 Chloride 99.6 mmol/L (98-107) 12/17/17 07:19 Carbon Dioxide 23 mmol/L (22-30) 12/17/17 07:19 Anion Gap 22 mmol/L 12/17/17 07:19 BUN 64 mg/dL (9-20) H 12/17/17 07:19 Creatinine 2.6 mg/dL (0.8-1.5) H 12/17/17 07:19 Estimated GFR 29 ml/min 12/17/17 07:19 BUN/Creatinine Ratio 25 % 12/17/17 07:19 Glucose 151 mg/dL (75-100) H 12/17/17 07:19 POC Glucose 111 (70-105) H 12/17/17 08:39 Calcium 8.0 mg/dL (8.4-10.2) L 12/17/17 07:19 Phosphorus 4.20 mg/dL (2.5-4.5) 12/14/17 22:11 Magnesium 2.50 mg/dL (1.7-2.3) H 12/14/17 22:11 Total Creatine Kinase 109 units/L (55-170) 12/15/17 12:20 CK-MB (CK-2) 4.9 ng/mL (0.0-4.0) H 12/15/17 12:20 CK-MB (CK-2) Rel Index 4.4 (0-4) H 12/15/17 12:20 Troponin T 0.030 ng/mL (0.00-0.029) H D 12/15/17 12:20 NT-Pro-B Natriuret Pep 83390 pg/mL (0-900) H 12/15/17 04:30 Triglycerides 99 mg/dL (2-149) 12/14/17 21:15 Cholesterol 108 mg/dL (50-199) 12/14/17 21:15 LDL Cholesterol Direct 53 mg/dL (50-130) 12/14/17 21:15 HDL Cholesterol 14 mg/dL (40-59) L 12/14/17 21:15 Cholesterol/HDL Ratio 7.71 % 12/14/17 21:15 Urine Color Yellow (Yellow) 12/15/17 15:28 Urine Turbidity Clear (Clear) 12/15/17 15:28 Urine pH 5.0 (5.0-7.0) 12/15/17 15:28 Ur Specific [place] 1.006 (1.003-1.030) 12/15/17 15:28 Urine Protein <15 mg/dl mg/dL (Negative) 12/15/17 15:28 Urine Glucose (UA) Neg mg/dL (Negative) 12/15/17 15:28 Urine Ketones Neg mg/dL (Negative) 12/15/17 15:28 Urine Blood Sm (Negative) 12/15/17 15:28 Urine Nitrite Neg (Negative) 12/15/17 15:28 Urine Bilirubin Neg (Negative) 12/15/17 15:28 Urine Urobilinogen < 2.0 mg/dL (<2.0) 12/15/17 15:28 Ur Leukocyte Esterase Neg (Negative) 12/15/17 15:28 Urine Osmolality 336 Mosm/kg 12/15/17 15:28 Urine Creatinine 17.4 mg/dL (0.1-20.0) 12/15/17 15:28 Urine Sodium 106 mmol/L 12/15/17 15:28 Urine Potassium 21.23 mmol/L 12/15/17 15:28 Urine Chloride 116.5 mmolL (110-250) 12/15/17 15:28
[2017-12-18] MEDS: MILRINONE-D5W 20 MG/100 ML 20 MG/100 ML BAG IV SCH (05:17)
[2017-12-18] MEDS: ISORDIL TITRADOSE PO SCH ×3 (05:17→23:42)
[2017-12-18] MEDS: APRESOLINE PO SCH ×3 (05:17→23:46)
--- NOTE | 2017-12-18 07:17 | Progress Note ---
Assessment and Plan Bvsehhbnhazmia-jkj-[id number], LVEF 20% Acute systolic heart failure Severe pulmonary hypertension Enlarged thoracic aorta with evidence of a linear echodensity noted on echo Acute renal failure Permanent atrial fibrillation on eliquis Hypokalemia Type II DM Systemic Hypertension (BP 180/100 on admission) Poor historian Vascular findings noted THERE APPEARS TO BE DISSECTING PLAQUE IN THE MD AO DS AO MEASURES 3.6CM X 4.4CM, PLAQUE ALSO NOTED IN DS AO DIFFICULT EXAM DUE TO PT HABITUS AND HEAVY RESPIRATIONS CXR from previous admissions reviewed. There has been no change in the size of the aorta on CXR CTA cannot be obtained due to underlying renal failure Suspect this to be a chronic finding Continue blood pressure control Will benefit from LAURIE in the near future once acute issues resolved Continue medical therapy with BB, imdur, and hydralazine Add ACEi and spironolactone pending improvement in creatinine Hold diuresis as creatinine increasing Subjective Date of service: 12/18/17 Principal diagnosis: CHF Interval history: No acute events. Resting comfortably. Objective Vital Signs Temp Pulse Resp BP BP Pulse Ox 12/18/17 04:58 97.6 F 84 18 110/52 98 12/18/17 01:20 98.2 F 93 H 20 122/59 95 12/17/17 20:01 98.9 F 75 18 112/62 94 12/17/17 15:17 84 120/74 12/17/17 15:16 84 124/72 12/17/17 13:08 18 12/17/17 10:00 88 - Physical Examination HEENT: Positive: PERRL Neck: Positive: neck supple Neuro: Positive: Grossly Intact Abdomen: Positive: Ascites, Distended Skin: Positive: Clear Extremities: Present: +3 Edema - Labs and Meds CBC 12/17/17 Range/Units 07:19 WBC 10.2 (4.5-11.0) K/mm3 RBC 4.13 (3.65-5.03) M/mm3 Hgb 11.6 L (11.8-15.2) gm/dl Hct 35.0 L (35.5-45.6) % Plt Count 106 L (140-440) K/mm3 Comprehensive Metabolic Panel 12/17/17 Range/Units 07:19 Sodium 142 D (137-145) mmol/L Potassium 2.8 L* (3.6-5.0) mmol/L Chloride 99.6 (98-107) mmol/L Carbon Dioxide 23 (22-30) mmol/L BUN 64 H (9-20) mg/dL Creatinine 2.6 H (0.8-1.5) mg/dL Glucose 151 H (75-100) mg/dL Calcium 8.0 L (8.4-10.2) mg/dL
[2017-12-18 08:52] LABS: Hematocrit 32.8 % (35.5-45.6); Hemoglobin 10.8 gm/dl (11.8-15.2); Mean Corpuscular HGB Conc 33 % (32-34); Mean Corpuscular Hemoglobin 28 pg (28-32); Mean Corpuscular Volume 85 fl (84-94); Platelet Count 114 K/mm3 (140-440); Red Blood Count 3.87 M/mm3 (3.65-5.03)
[2017-12-18 09:17] LABS: Calcium 8.2 mg/dL (8.4-10.2)
[2017-12-18] MEDS: HumaLOG SUB-Q SCH ×4 (09:46→22:45)
[2017-12-18] MEDS: LANTUS SUB-Q SCH (09:47)
[2017-12-18] MEDS: COREG PO SCH ×2 (10:32→23:44)
[2017-12-18] MEDS: PROCARDIA XL PO SCH (10:32)
[2017-12-18] MEDS: K-DUR PO SCH (10:32)
[2017-12-18] MEDS: ELIQUIS PO SCH ×2 (10:32→23:43)
[2017-12-18] MEDS ORDERED: MAGNESIUM SULFATE 2GM/50ML 2 GM/50 ML BAG IV ONE (14:50)
[2017-12-18] MEDS ORDERED: K-DUR PO ONE (14:50)
--- NOTE | 2017-12-18 16:31 | Progress Note ---
Assessment and Plan Assessment and plan: Patient is a 77-year-old man with a history of hypertension, diabetes mellitus, dilated cardiomyopathy, CHF and atrial fibrillation on warfarin who presented with shortness of breath. He was found to be in DKA and started on insulin drip. He was downgraded from ICU to medical floor stopped overnight. Portable chest x-ray read as no acute findings VQ scan is read as low probability PE -DKA: Start long acting insulin, add fast acting sliding-scale, stop dextrose IV fluids, recheck BMP -Acute on Chronic systolic heart failure: Continue Lasix -Hypertension urgency: Treat with IV labetalol -Atrial fibrillation on anticoagulation/Eliquis -Acute on Chronic kidney disease stage IV, cardiorenal syndrome, poa: Consulted nephrology -DVT/GI prophylaxis reviewed, on Eliquis 12/17/17: Move to telemetry yesterday to start Primacor drip per Cardiology. Renal function has worsened today, lasix decreased, Nephrology is following. ECHO reviewed and then he went for Aortic ultrasound which Cardiology is following. Hypokalemia, will replace and recheck in am. 12/18/17: renal function worsening, most likely Cardiorenal syndrome==>poor prognosis. Still on Primacor drip, NSVT this morning, d/w Aerodynamics Professor Dr. Hobbs, will check mag level. History Interval history: Patient was seen and examined. Follow-up on current diagnosis of DKA, resolved. Overnight eventful. Patient denies any chest pain, shortness breath , nausea/vomiting or severe headaches. Imaging, nursing note, chart, labs and old chart reviewed. Discussed with patient. He has 21 beat run of NSVT this morning 0544. Hospitalist Physical - Physical exam Narrative exam: GEN: WDWN, NAD, AWAKE, ALERT, ORIENTATED 3 HEENT: NCAT, EOMI, PERRL, OP Clear NECK: supple, no adenopathy, no thyromegaly, equivocal JVD CVS/HEART: irregular irregular, NORMAL S1S2, pulses present bilaterally CHEST/LUNGS: bilateral crackles Symmetrical chest expansion, good air entry bilaterally GI/Abdomen: soft, NTND, good bowel sounds, no guarding or rebound /Bladder: no suprapubic tenderness, no CVA or paraspinal tenderness EXT/Skin: + 2 ble pitting edema no obvious rash MSK: FROM x 4 Neuro: CN 2-12 grossly intact, no new focal deficits Psych: calm - Constitutional Vitals: Temp Pulse Resp BP Pulse Ox 97.6 F 85 18 110/52 95 12/18/17 04:58 12/18/17 10:00 12/18/17 10:00 12/18/17 04:58 12/18/17 10:00 General appearance: Present: mild distress Results - Labs CBC & Chem 7: 12/18/17 08:02 12/18/17 08:02 Labs: Laboratory Last Values WBC 11.7 K/mm3 (4.5-11.0) H 12/18/17 08:02 RBC 3.87 M/mm3 (3.65-5.03) 12/18/17 08:02 Hgb 10.8 gm/dl (11.8-15.2) L 12/18/17 08:02 Hct 32.8 % (35.5-45.6) L 12/18/17 08:02 MCV 85 fl (84-94) 12/18/17 08:02 MCH 28 pg (28-32) 12/18/17 08:02 MCHC 33 % (32-34) 12/18/17 08:02 RDW 16.0 % (13.2-15.2) H 12/18/17 08:02 Plt Count 114 K/mm3 (140-440) L 12/18/17 08:02 Lymph % (Auto) 5.4 % (13.4-35.0) L 12/16/17 04:38 [place] % (Auto) 11.6 % (0.0-7.3) H 12/16/17 04:38 Eos % (Auto) 0.5 % (0.0-4.3) 12/16/17 04:38 Baso % (Auto) 0.1 % (0.0-1.8) 12/16/17 04:38 Lymph # 0.6 K/mm3 (1.2-5.4) L 12/16/17 04:38 [place] # 1.2 K/mm3 (0.0-0.8) H 12/16/17 04:38 Eos # 0.1 K/mm3 (0.0-0.4) 12/16/17 04:38 Baso # 0.0 K/mm3 (0.0-0.1) 12/16/17 04:38 Seg Neutrophils % 82.4 % (40.0-70.0) H 12/16/17 04:38 Seg Neutrophils # 8.6 K/mm3 (1.8-7.7) H 12/16/17 04:38 PT 19.2 Sec. (12.2-14.9) H 12/14/17 21:19 INR 1.52 (0.87-1.13) H 12/14/17 21:19 APTT 30.2 Sec. (24.2-36.6) 12/14/17 21:19 D-Dimer 5306.46 ng/mlDDU (0-234) H 12/14/17 22:17 VBG pH 7.288 (7.320-7.420) L 12/14/17 21:15 Sodium 138 mmol/L (137-145) 12/18/17 08:02 Potassium 3.3 mmol/L (3.6-5.0) L 12/18/17 08:02 Chloride 95.7 mmol/L (98-107) L 12/18/17 08:02 Carbon Dioxide 22 mmol/L (22-30) 12/18/17 08:02 Anion Gap 24 mmol/L 12/18/17 08:02 BUN 78 mg/dL (9-20) H 12/18/17 08:02 Creatinine 3.7 mg/dL (0.8-1.5) H 12/18/17 08:02 Estimated GFR 19 ml/min 12/18/17 08:02 BUN/Creatinine Ratio 21 % 12/18/17 08:02 Glucose 232 mg/dL (75-100) H 12/18/17 08:02 POC Glucose 286 (70-105) H 12/18/17 12:18 Calcium 8.2 mg/dL (8.4-10.2) L 12/18/17 08:02 Phosphorus 4.20 mg/dL (2.5-4.5) 12/14/17 22:11 Magnesium 2.00 mg/dL (1.7-2.3) 12/18/17 15:33 Total Creatine Kinase 109 units/L (55-170) 12/15/17 12:20 CK-MB (CK-2) 4.9 ng/mL (0.0-4.0) H 12/15/17 12:20 CK-MB (CK-2) Rel Index 4.4 (0-4) H 12/15/17 12:20 Troponin T 0.030 ng/mL (0.00-0.029) H D 12/15/17 12:20 NT-Pro-B Natriuret Pep 08775 pg/mL (0-900) H 12/15/17 04:30 Triglycerides 99 mg/dL (2-149) 12/14/17 21:15 Cholesterol 108 mg/dL (50-199) 12/14/17 21:15 LDL Cholesterol Direct 53 mg/dL (50-130) 12/14/17 21:15 HDL Cholesterol 14 mg/dL (40-59) L 12/14/17 21:15 Cholesterol/HDL Ratio 7.71 % 12/14/17 21:15 Urine Color Yellow (Yellow) 12/15/17 15:28 Urine Turbidity Clear (Clear) 12/15/17 15:28 Urine pH 5.0 (5.0-7.0) 12/15/17 15:28 Ur Specific [place] 1.006 (1.003-1.030) 12/15/17 15:28 Urine Protein <15 mg/dl mg/dL (Negative) 12/15/17 15:28 Urine Glucose (UA) Neg mg/dL (Negative) 12/15/17 15:28 Urine Ketones Neg mg/dL (Negative) 12/15/17 15:28 Urine Blood Sm (Negative) 12/15/17 15:28 Urine Nitrite Neg (Negative) 12/15/17 15:28 Urine Bilirubin Neg (Negative) 12/15/17 15:28 Urine Urobilinogen < 2.0 mg/dL (<2.0) 12/15/17 15:28 Ur Leukocyte Esterase Neg (Negative) 12/15/17 15:28 Urine Osmolality 336 Mosm/kg 12/15/17 15:28 Urine Creatinine 17.4 mg/dL (0.1-20.0) 12/15/17 15:28 Urine Sodium 106 mmol/L 12/15/17 15:28 Urine Potassium 21.23 mmol/L 12/15/17 15:28 Urine Chloride 116.5 mmolL (110-250) 12/15/17 15:28
[2017-12-18] MEDS ORDERED: LASIX IV ONE (16:42)
--- NOTE | 2017-12-18 16:42 | Progress Note ---
Assessment and Plan Impression: * Acute kidney injury secondary to cardiorenal syndrome * Acute systolic heart failure * Cardiomyopathy - LVEF 20% * Anasarca * Atrial fibrillation * Nonsustained VTach * Pulmonary hypertension * Type II DM * Hypokalemia Plan: * Multiple family members at bedside. Patient's sister in [place] contacted via phone by patient's nephew in the room. Family members updated re: worsening renal function in setting of cardiomyopathy. Per sister, family has decided against dialysis. * Milrinone gtt per cardiology * Trial of lasix w/ albumin today as patient w/ continued edema * Replete lytes prn * Avoid potential nephrotoxins * Strict I/O * Fluid restricted diet * Consider palliative care/hospice consult Subjective Date of service: 12/18/17 Principal diagnosis: CHF Interval history: 24h events reviewed. Patient with minimal urine output. Also w/ NSVT. Objective - Vital Signs Vital signs: Vital Signs - 12hr 12/18/17 12/18/17 04:58 10:00 Temperature 97.6 F Pulse Rate 84 85 Pulse Rate [ 85 Apical] Respiratory 18 18 Rate Blood Pressure 110/52 [Left] O2 Sat by Pulse 98 95 Oximetry - General Appearance General appearance: well-developed, well-nourished, other (confused today) EENT: ATNC Respiratory: Present: Decreased Breath Sounds Cardiology: regular, S1S2 Gastrointestinal: no distended, other (flank edema) Neurologic: other (lethargic) Musculoskeletal: other (anasarca) - Lab 12/18/17 08:02 12/18/17 08:02 Most recent lab results Calcium 8.2 mg/dL (8.4-10.2) L 12/18/17 08:02 Phosphorus 4.20 mg/dL (2.5-4.5) 12/14/17 22:11 Magnesium 2.00 mg/dL (1.7-2.3) 12/18/17 15:33 Urine Creatinine 17.4 mg/dL (0.1-20.0) 12/15/17 15:28 Urine Sodium 106 mmol/L 12/15/17 15:28
[2017-12-18] MEDS ORDERED: ALBURX 25% (ALBUMIN) IV ONE (17:00)
[2017-12-19 06:38] LABS: Hematocrit 32.3 % (35.5-45.6); Hemoglobin 10.8 gm/dl (11.8-15.2); Mean Corpuscular HGB Conc 33 % (32-34); Mean Corpuscular Hemoglobin 28 pg (28-32); Mean Corpuscular Volume 85 fl (84-94); Platelet Count 112 K/mm3 (140-440); Red Blood Count 3.81 M/mm3 (3.65-5.03); Red Cell Distribution Width 16.3 % (13.2-15.2)
[2017-12-19 07:06] LABS: Calcium 8.6 mg/dL (8.4-10.2)
[2017-12-19] MEDS: MILRINONE-D5W 20 MG/100 ML 20 MG/100 ML BAG IV SCH (07:08)
[2017-12-19] MEDS: ISORDIL TITRADOSE PO SCH ×3 (07:08→22:40)
[2017-12-19] MEDS: APRESOLINE PO SCH ×3 (07:09→22:39)
[2017-12-19] MEDS: HumaLOG SUB-Q SCH ×4 (08:00→23:00)
[2017-12-19] MEDS: LANTUS SUB-Q SCH (08:00)
--- NOTE | 2017-12-19 08:40 | Progress Note ---
Assessment and Plan Jhmwodmbrjvydb-[id number], LVEF 20% Acute systolic heart failure Severe pulmonary hypertension Enlarged thoracic aorta with evidence of a linear echodensity noted on echo Acute renal failure Permanent atrial fibrillation on eliquis Hypokalemia Type II DM Systemic Hypertension (BP 180/100 on admission) Poor historian No-sustained VT Vascular findings noted THERE APPEARS TO BE DISSECTING PLAQUE IN THE MD AO DS AO MEASURES 3.6CM X 4.4CM, PLAQUE ALSO NOTED IN DS AO DIFFICULT EXAM DUE TO PT HABITUS AND HEAVY RESPIRATIONS CXR from previous admissions reviewed. There has been no change in the size of the aorta on CXR CTA cannot be obtained due to underlying renal failure Suspect this to be a chronic finding Continue blood pressure control Will benefit from LAURIE should acute issues resolve Continue medical therapy with BB, imdur, and hydralazine ACEi and spironolactone are held due to worsening creatinine Patient has developed cardiorenal syndrome with worsening creatinine. dialysis has been refused by the family. Diuresis per nephrology. Patient has had periods of non-sustained VT (20-30 beats). Recommend Keep K>4 and Mg>2. Avoid hyperkalemia as is possible. Would not increase BB dose due to worsening heart failure and cardiorenal syndrome. Patient is on milrinone, which he needs in order to help perfuse the kidney to the extent it is possible. Would not add dobutamine as this will worsen VT. Prognosis is poor. Subjective Date of service: 12/19/17 Principal diagnosis: CHF Interval history: No acute events. Resting comfortably. Objective Vital Signs Temp Pulse Pulse Resp BP BP Pulse Ox 12/19/17 08:04 97.4 F L 75 20 100/44 96 12/19/17 07:09 72 98/48 12/19/17 07:08 72 98/48 12/19/17 02:06 97.8 F 72 20 98/48 96 12/18/17 23:46 86 91/50 12/18/17 23:44 86 91/50 12/18/17 23:42 86 91/50 12/18/17 22:57 97.3 F L 86 20 91/50 96 12/18/17 10:00 85 85 18 95 12/18/17 08:56 97.5 F L 91 H 20 98/41 97 - Physical Examination HEENT: Positive: PERRL Neck: Positive: neck supple Neuro: Positive: Grossly Intact Abdomen: Positive: Ascites, Distended Skin: Positive: Clear Extremities: Present: +3 Edema - Labs and Meds CBC 12/18/17 12/19/17 Range/Units 08:02 05:21 WBC 11.7 H 8.3 (4.5-11.0) K/mm3 RBC 3.87 3.81 (3.65-5.03) M/mm3 Hgb 10.8 L 10.8 L (11.8-15.2) gm/dl Hct 32.8 L 32.3 L (35.5-45.6) % Plt Count 114 L 112 L (140-440) K/mm3 Comprehensive Metabolic Panel 12/18/17 12/19/17 Range/Units 08:02 05:21 Sodium 138 138 (137-145) mmol/L Potassium 3.3 L 3.1 L (3.6-5.0) mmol/L Chloride 95.7 L 93.7 L (98-107) mmol/L Carbon Dioxide 22 22 (22-30) mmol/L BUN 78 H 88 H (9-20) mg/dL Creatinine 3.7 H 4.8 H (0.8-1.5) mg/dL Glucose 232 H 177 H (75-100) mg/dL Calcium 8.2 L 8.6 (8.4-10.2) mg/dL
[2017-12-19] MEDS ORDERED: K-DUR PO ONE ×3 (10:00→12:00)
[2017-12-19] MEDS: PROCARDIA XL PO SCH ×2 (10:41→12:33)
[2017-12-19] MEDS: COREG PO SCH ×2 (10:41→22:39)
[2017-12-19] MEDS: ELIQUIS PO SCH ×2 (10:41→22:40)
[2017-12-19] MEDS: K-DUR PO SCH (10:41)
--- NOTE | 2017-12-19 11:54 | Progress Note ---
Assessment and Plan Impression: * Acute kidney injury secondary to cardiorenal syndrome * Acute systolic heart failure * Cardiomyopathy - LVEF 20% * Anasarca * Atrial fibrillation * Nonsustained VTach * Pulmonary hypertension * Type II DM * Hypokalemia Plan: * Yesterday, family declined dialysis - see note 12/18. Patient now with decline in mental status and no UOP x 24 hours despite Lasix and Albumin w/ milrinone gtt. Per RN, patient remains a full code. I attempted to contact family member (Camilla Staples at [phone]) but number is incorrect. Goals of care (i.e. code status, hospice/palliative care) need to be clearly established if family continues to decline dialysis. * Milrinone gtt per cardiology * Replete lytes prn * Avoid potential nephrotoxins * Strict I/O * Prognosis is poor * Plan of care discussed with Dr. Reyes Subjective Date of service: 12/19/17 Principal diagnosis: CHF Interval history: Patient more lethargic today Objective - Vital Signs Vital signs: Vital Signs - 12hr 12/19/17 12/19/17 12/19/17 02:06 07:08 07:09 Temperature 97.8 F Pulse Rate 72 72 72 Pulse Rate [ Apical] Respiratory 20 Rate Blood Pressure 98/48 98/48 Blood Pressure 98/48 [Left] O2 Sat by Pulse 96 Oximetry 12/19/17 12/19/17 12/19/17 08:04 10:00 11:15 Temperature 97.4 F L 97.3 F L Pulse Rate 75 80 58 L Pulse Rate [ 80 Apical] Respiratory 20 18 16 Rate Blood Pressure Blood Pressure 100/44 104/43 [Left] O2 Sat by Pulse 96 96 97 Oximetry - General Appearance General appearance: well-developed, well-nourished EENT: ATNC Respiratory: Present: Decreased Breath Sounds Gastrointestinal: no tenderness, no guarding Integumentary: no rash, warm and dry Neurologic: other (lethargic) Musculoskeletal: other (anasarca) Psychiatric: cooperative - Lab 12/19/17 05:21 12/19/17 05:21 Most recent lab results Calcium 8.6 mg/dL (8.4-10.2) 12/19/17 05:21 Phosphorus 4.20 mg/dL (2.5-4.5) 12/14/17 22:11 Magnesium 2.20 mg/dL (1.7-2.3) 12/19/17 05:21 Urine Creatinine 17.4 mg/dL (0.1-20.0) 12/15/17 15:28 Urine Sodium 106 mmol/L 12/15/17 15:28
--- NOTE | 2017-12-19 14:53 | Progress Note ---
Assessment and Plan Assessment and plan: Patient is a 77-year-old man with a history of hypertension, diabetes mellitus, dilated cardiomyopathy, CHF and atrial fibrillation on warfarin who presented with shortness of breath. He was found to be in DKA and started on insulin drip. He was downgraded from ICU to medical floor stopped overnight. Portable chest x-ray read as no acute findings VQ scan is read as low probability PE -DKA, resolved. -Acute on Chronic systolic heart failure on Primacor drip, cardiology is following, -Hypertension urgency: Treat with IV labetalol -Atrial fibrillation on anticoagulation/Eliquis -Enlarged thoracic aorta with evidence of a linear echodensity noted on echo, so an Aorta u/s done which showed DISSECTING PLAQUE IN THE MD AO, DS AO MEASURES 3.6CM X 4.4CM, PLAQUE ALSO NOTED IN DS AO DIFFICULT EXAM DUE TO PT HABITUS AND HEAVY RESPIRATIONS, Cardiology is following -Acute on Chronic kidney disease stage IV, Cardiorenal syndrome, poa: Consulted nephrology -DVT/GI prophylaxis reviewed, on Eliquis -NSVT: on bb, replace potassium -Hypokalemia: replete potassium. 12/17/17: Move to telemetry yesterday to start Primacor drip per Cardiology. Renal function has worsened today, lasix decreased, Nephrology is following. ECHO reviewed and then he went for Aortic ultrasound which Cardiology is following. Hypokalemia, replace and recheck in am. 12/18/17: renal function worsening, most likely Cardiorenal syndrome==>poor prognosis. Still on Primacor drip, NSVT this morning, d/w Bus Transportation Manager Dr. Hobbs, will check mag level. 12/19/17: yesterday Nephrology spoke with sister in [place] and hemodialysis was declined and now Renal function worsened as well as clinical status. I tired to reach family without success. Still with NSVT. Will replace potassium. I called [facility] regarding going to ICU. Awaiting on family member to show up to discuss hospice considering no hemodialysis. Full code for now. Poor prognosis, expect cardiac arrest. CCT 38 minutes History Interval history: Patient was seen and examined. Follow-up on current diagnosis of cardiorenal syndrome. Overnight eventful. Imaging, nursing note, chart, labs and old chart reviewed. Pt is lethargic and tired, barely answered questions. He is moving his extermities w/o focal deficits but his mentation is worse. last night at 11:54pm he had 6 beat run of NSVT, then around midnight he had another 5 beat run of NSVT. Hospitalist Physical - Physical exam Narrative exam: GEN: WDWN, NAD, AWAKE, ALERT, ORIENTATED 3 HEENT: NCAT, EOMI, PERRL, OP Clear NECK: supple, no adenopathy, no thyromegaly, equivocal JVD CVS/HEART: irregular irregular, NORMAL S1S2, pulses present bilaterally CHEST/LUNGS: bilateral crackles Symmetrical chest expansion, good air entry bilaterally GI/Abdomen: soft, NTND, good bowel sounds, no guarding or rebound /Bladder: no suprapubic tenderness, no CVA or paraspinal tenderness EXT/Skin: + 2 ble pitting edema no obvious rash MSK: FROM x 4 Neuro: CN 2-12 grossly intact, no new focal deficits Psych: calm - Constitutional Vitals: Temp Pulse Resp BP Pulse Ox 97.2 F L 58 L 16 110/55 97 12/19/17 14:03 12/19/17 11:15 12/19/17 14:03 12/19/17 14:03 12/19/17 14:03 General appearance: Present: mild distress Results - Labs CBC & Chem 7: 12/19/17 05:21 12/19/17 05:21 Labs: Laboratory Last Values WBC 8.3 K/mm3 (4.5-11.0) 12/19/17 05:21 RBC 3.81 M/mm3 (3.65-5.03) 12/19/17 05:21 Hgb 10.8 gm/dl (11.8-15.2) L 12/19/17 05:21 Hct 32.3 % (35.5-45.6) L 12/19/17 05:21 MCV 85 fl (84-94) 12/19/17 05:21 MCH 28 pg (28-32) 12/19/17 05:21 MCHC 33 % (32-34) 12/19/17 05:21 RDW 16.3 % (13.2-15.2) H 12/19/17 05:21 Plt Count 112 K/mm3 (140-440) L 12/19/17 05:21 Lymph % (Auto) 5.4 % (13.4-35.0) L 12/16/17 04:38 [place] % (Auto) 11.6 % (0.0-7.3) H 12/16/17 04:38 Eos % (Auto) 0.5 % (0.0-4.3) 12/16/17 04:38 Baso % (Auto) 0.1 % (0.0-1.8) 12/16/17 04:38 Lymph # 0.6 K/mm3 (1.2-5.4) L 12/16/17 04:38 [place] # 1.2 K/mm3 (0.0-0.8) H 12/16/17 04:38 Eos # 0.1 K/mm3 (0.0-0.4) 12/16/17 04:38 Baso # 0.0 K/mm3 (0.0-0.1) 12/16/17 04:38 Seg Neutrophils % 82.4 % (40.0-70.0) H 12/16/17 04:38 Seg Neutrophils # 8.6 K/mm3 (1.8-7.7) H 12/16/17 04:38 PT 19.2 Sec. (12.2-14.9) H 12/14/17 21:19 INR 1.52 (0.87-1.13) H 12/14/17 21:19 APTT 30.2 Sec. (24.2-36.6) 12/14/17 21:19 D-Dimer 5306.46 ng/mlDDU (0-234) H 12/14/17 22:17 VBG pH 7.288 (7.320-7.420) L 12/14/17 21:15 Sodium 138 mmol/L (137-145) 12/19/17 05:21 Potassium 3.1 mmol/L (3.6-5.0) L 12/19/17 05:21 Chloride 93.7 mmol/L (98-107) L 12/19/17 05:21 Carbon Dioxide 22 mmol/L (22-30) 12/19/17 05:21 Anion Gap 25 mmol/L 12/19/17 05:21 BUN 88 mg/dL (9-20) H 12/19/17 05:21 Creatinine 4.8 mg/dL (0.8-1.5) H 12/19/17 05:21 Estimated GFR 14 ml/min 12/19/17 05:21 BUN/Creatinine Ratio 18 % 12/19/17 05:21 Glucose 177 mg/dL (75-100) H 12/19/17 05:21 POC Glucose 145 (70-105) H 12/19/17 11:24 Calcium 8.6 mg/dL (8.4-10.2) 12/19/17 05:21 Phosphorus 4.20 mg/dL (2.5-4.5) 12/14/17 22:11 Magnesium 2.20 mg/dL (1.7-2.3) 12/19/17 05:21 Total Creatine Kinase 109 units/L (55-170) 12/15/17 12:20 CK-MB (CK-2) 4.9 ng/mL (0.0-4.0) H 12/15/17 12:20 CK-MB (CK-2) Rel Index 4.4 (0-4) H 12/15/17 12:20 Troponin T 0.030 ng/mL (0.00-0.029) H D 12/15/17 12:20 NT-Pro-B Natriuret Pep 73223 pg/mL (0-900) H 12/15/17 04:30 Triglycerides 99 mg/dL (2-149) 12/14/17 21:15 Cholesterol 108 mg/dL (50-199) 12/14/17 21:15 LDL Cholesterol Direct 53 mg/dL (50-130) 12/14/17 21:15 HDL Cholesterol 14 mg/dL (40-59) L 12/14/17 21:15 Cholesterol/HDL Ratio 7.71 % 12/14/17 21:15 Urine Color Yellow (Yellow) 12/15/17 15:28 Urine Turbidity Clear (Clear) 12/15/17 15:28 Urine pH 5.0 (5.0-7.0) 12/15/17 15:28 Ur Specific [place] 1.006 (1.003-1.030) 12/15/17 15:28 Urine Protein <15 mg/dl mg/dL (Negative) 12/15/17 15:28 Urine Glucose (UA) Neg mg/dL (Negative) 12/15/17 15:28 Urine Ketones Neg mg/dL (Negative) 12/15/17 15:28 Urine Blood Sm (Negative) 12/15/17 15:28 Urine Nitrite Neg (Negative) 12/15/17 15:28 Urine Bilirubin Neg (Negative) 12/15/17 15:28 Urine Urobilinogen < 2.0 mg/dL (<2.0) 12/15/17 15:28 Ur Leukocyte Esterase Neg (Negative) 12/15/17 15:28 Urine Osmolality 336 Mosm/kg 12/15/17 15:28 Urine Creatinine 17.4 mg/dL (0.1-20.0) 12/15/17 15:28 Urine Sodium 106 mmol/L 12/15/17 15:28 Urine Potassium 21.23 mmol/L 12/15/17 15:28 Urine Chloride 116.5 mmolL (110-250) 12/15/17 15:28
[2017-12-20] MEDS: APRESOLINE PO SCH ×3 (05:28→22:00)
[2017-12-20] MEDS: ISORDIL TITRADOSE PO SCH ×3 (05:29→22:02)
[2017-12-20] MEDS: HumaLOG SUB-Q SCH ×4 (09:29→22:01)
[2017-12-20] MEDS: COREG PO SCH ×2 (09:30→22:01)
[2017-12-20] MEDS: ELIQUIS PO SCH ×2 (09:31→22:01)
[2017-12-20] MEDS: PROCARDIA XL PO SCH (09:31)
[2017-12-20] MEDS: K-DUR PO SCH (09:31)
[2017-12-20 09:55] LABS: Hematocrit 32.7 % (35.5-45.6); Hemoglobin 10.8 gm/dl (11.8-15.2); Mean Corpuscular HGB Conc 33 % (32-34); Mean Corpuscular Hemoglobin 28 pg (28-32); Mean Corpuscular Volume 85 fl (84-94); Platelet Count 115 K/mm3 (140-440); Red Blood Count 3.86 M/mm3 (3.65-5.03)
[2017-12-20 10:03] LABS: Calcium 8.5 mg/dL (8.4-10.2)
[2017-12-20] MEDS: LANTUS SUB-Q SCH (11:00)
--- NOTE | 2017-12-20 13:54 | Progress Note ---
Assessment and Plan Impression: * Acute kidney injury secondary to cardiorenal syndrome * Acute systolic heart failure * Cardiomyopathy - LVEF 20% * Anasarca * Atrial fibrillation * Nonsustained VTach * Pulmonary hypertension * Type II DM * Hypokalemia * Encephalopathy - likely secondary to uremia Plan: * Family declined dialysis - see note 12/18. Patient now with decline in mental status and no UOP x 24 hours despite Lasix and Albumin w/ milrinone gtt. Per RN , patient remains a full code. I attempted to contact family member (Camilla Staples at [phone]) but number is incorrect. Goals of care (i.e. code status, hospice/palliative care) need to be clearly established if family continues to decline dialysis. * Milrinone gtt per cardiology * Replete lytes prn * Avoid potential nephrotoxins * Strict I/O * Prognosis is poor * Plan of care discussed with Dr. Reyes Subjective Date of service: 12/20/17 Principal diagnosis: CHF Interval history: Patient with decline in mental status Objective - Vital Signs Vital signs: Vital Signs - 12hr 12/20/17 04:00 Temperature 97.9 F Pulse Rate 89 Respiratory 18 Rate Blood Pressure 106/47 [Left] O2 Sat by Pulse 94 Oximetry - General Appearance General appearance: well-developed, well-nourished EENT: ATNC Respiratory: Present: Decreased Breath Sounds Cardiology: regular, S1S2 Gastrointestinal: normal, other (flank edema) Integumentary: no rash, warm and dry Neurologic: other (lethargic) Musculoskeletal: other (anasarca) Psychiatric: other (unable to assess) - Lab 12/20/17 09:12 12/20/17 09:12 Most recent lab results Calcium 8.5 mg/dL (8.4-10.2) 12/20/17 09:12 Phosphorus 4.20 mg/dL (2.5-4.5) 12/14/17 22:11 Magnesium 2.20 mg/dL (1.7-2.3) 12/20/17 09:12 Urine Creatinine 17.4 mg/dL (0.1-20.0) 12/15/17 15:28 Urine Sodium 106 mmol/L 12/15/17 15:28
--- NOTE | 2017-12-20 15:13 | Progress Note ---
Assessment and Plan Assessment and plan: Patient is a 77-year-old man with a history of hypertension, diabetes mellitus, dilated cardiomyopathy, CHF and atrial fibrillation on warfarin who presented with shortness of breath. He was found to be in DKA and started on insulin drip. He was downgraded from ICU to medical floor stopped overnight. Portable chest x-ray read as no acute findings VQ scan is read as low probability PE -DKA, resolved. -Acute on Chronic systolic heart failure on Primacor drip, cardiology is following, -End stage Cardiomyopathy on milrinone drip -Hypertension urgency: Treat with IV labetalol -Atrial fibrillation on anticoagulation/Eliquis -Enlarged thoracic aorta with evidence of a linear echodensity noted on echo, so an Aorta u/s done which showed DISSECTING PLAQUE IN THE MD AO, DS AO MEASURES 3.6CM X 4.4CM, PLAQUE ALSO NOTED IN DS AO DIFFICULT EXAM DUE TO PT HABITUS AND HEAVY RESPIRATIONS, Cardiology is following -Acute on Chronic kidney disease stage IV, Cardiorenal syndrome, poa: Consulted nephrology -DVT/GI prophylaxis reviewed, on Eliquis -NSVT: on bb, replace potassium -Hypokalemia: replete potassium. 12/17/17: Moved to telemetry 12/16/17 to start Primacor drip per Cardiology. Renal function has worsened today, lasix decreased, Nephrology is following. ECHO reviewed and then he went for Aortic ultrasound which Cardiology is following. Hypokalemia, replace and recheck in am. 12/18/17: renal function worsening, most likely Cardiorenal syndrome==>poor prognosis. Still on Primacor drip, NSVT this morning, d/w Combustion Analyst Dr. Hobbs, will check mag level. 12/19/17: yesterday Nephrology spoke with sister in [place] and hemodialysis was declined and now Renal function worsened as well as clinical status. I tired to reach family without success. Still with NSVT. Will replace potassium. I called [facility] regarding going to ICU. Awaiting on family member to show up to discuss hospice considering no hemodialysis. Full code for now. Poor prognosis, expect cardiac arrest. CCT 38 minutes 12/20/17: Renal function deteriorating, Cr went from 4.8 to 6.4, Mental status has deteriorated, will get stat ct head. very poor prognosis. d/w case management, trying to find family. D/W Dr. Chambers yesterday regarding moving to ICU, ok if not going to hospice or gets worse, which has happened. I will transfer to ICU, d/w Charge nurse Bernard. Still with runs of NSVT, on milrinone drip. CCT 32 minutes History Interval history: Patient was seen and examined. Follow-up on current diagnosis of cardiorenal syndrome. Overnight eventful. Imaging, nursing note, chart, labs and old chart reviewed. Pt is lethargic and tired. He has another long run of NSVT. Hospitalist Physical - Physical exam Narrative exam: GEN: ill appearing, lethagic, arousable to pain HEENT: NCAT, EOMI, PERRL, OP Clear NECK: supple, no adenopathy, no thyromegaly, equivocal JVD CVS/HEART: irregular irregular, NORMAL S1S2, pulses present bilaterally CHEST/LUNGS: bilateral crackles Symmetrical chest expansion, good air entry bilaterally GI/Abdomen: soft, NTND, good bowel sounds, no guarding or rebound /Bladder: no suprapubic tenderness, no CVA or paraspinal tenderness EXT/Skin: + 2 ble pitting edema no obvious rash Neuro: CN 2-12 grossly intact, facial drop, doesn't follow commands Psych: confused - Constitutional Vitals: Temp Pulse Resp BP Pulse Ox 97.9 F 89 18 106/47 94 12/20/17 04:00 12/20/17 04:00 12/20/17 04:00 12/20/17 04:00 12/20/17 04:00 General appearance: Present: mild distress Results - Labs CBC & Chem 7: 12/20/17 09:12 12/20/17 09:12 Labs: Laboratory Last Values WBC 7.9 K/mm3 (4.5-11.0) 12/20/17 09:12 RBC 3.86 M/mm3 (3.65-5.03) 12/20/17 09:12 Hgb 10.8 gm/dl (11.8-15.2) L 12/20/17 09:12 Hct 32.7 % (35.5-45.6) L 12/20/17 09:12 MCV 85 fl (84-94) 12/20/17 09:12 MCH 28 pg (28-32) 12/20/17 09:12 MCHC 33 % (32-34) 12/20/17 09:12 RDW 16.0 % (13.2-15.2) H 12/20/17 09:12 Plt Count 115 K/mm3 (140-440) L 12/20/17 09:12 Lymph % (Auto) 5.4 % (13.4-35.0) L 12/16/17 04:38 [place] % (Auto) 11.6 % (0.0-7.3) H 12/16/17 04:38 Eos % (Auto) 0.5 % (0.0-4.3) 12/16/17 04:38 Baso % (Auto) 0.1 % (0.0-1.8) 12/16/17 04:38 Lymph # 0.6 K/mm3 (1.2-5.4) L 12/16/17 04:38 [place] # 1.2 K/mm3 (0.0-0.8) H 12/16/17 04:38 Eos # 0.1 K/mm3 (0.0-0.4) 12/16/17 04:38 Baso # 0.0 K/mm3 (0.0-0.1) 12/16/17 04:38 Seg Neutrophils % 82.4 % (40.0-70.0) H 12/16/17 04:38 Seg Neutrophils # 8.6 K/mm3 (1.8-7.7) H 12/16/17 04:38 PT 19.2 Sec. (12.2-14.9) H 12/14/17 21:19 INR 1.52 (0.87-1.13) H 12/14/17 21:19 APTT 30.2 Sec. (24.2-36.6) 12/14/17 21:19 D-Dimer 5306.46 ng/mlDDU (0-234) H 12/14/17 22:17 VBG pH 7.288 (7.320-7.420) L 12/14/17 21:15 Sodium 138 mmol/L (137-145) 12/20/17 09:12 Potassium 3.3 mmol/L (3.6-5.0) L 12/20/17 09:12 Chloride 93.7 mmol/L (98-107) L 12/20/17 09:12 Carbon Dioxide 21 mmol/L (22-30) L 12/20/17 09:12 Anion Gap 27 mmol/L 12/20/17 09:12 BUN 97 mg/dL (9-20) H 12/20/17 09:12 Creatinine 6.4 mg/dL (0.8-1.5) H 12/20/17 09:12 Estimated GFR 10 ml/min 12/20/17 09:12 BUN/Creatinine Ratio 15 % 12/20/17 09:12 Glucose 101 mg/dL (75-100) H 12/20/17 09:12 POC Glucose 115 (70-105) H 12/20/17 12:04 Calcium 8.5 mg/dL (8.4-10.2) 12/20/17 09:12 Phosphorus 4.20 mg/dL (2.5-4.5) 12/14/17 22:11 Magnesium 2.20 mg/dL (1.7-2.3) 12/20/17 09:12 Total Creatine Kinase 109 units/L (55-170) 12/15/17 12:20 CK-MB (CK-2) 4.9 ng/mL (0.0-4.0) H 12/15/17 12:20 CK-MB (CK-2) Rel Index 4.4 (0-4) H 12/15/17 12:20 Troponin T 0.030 ng/mL (0.00-0.029) H D 12/15/17 12:20 NT-Pro-B Natriuret Pep 15509 pg/mL (0-900) H 12/15/17 04:30 Triglycerides 99 mg/dL (2-149) 12/14/17 21:15 Cholesterol 108 mg/dL (50-199) 12/14/17 21:15 LDL Cholesterol Direct 53 mg/dL (50-130) 12/14/17 21:15 HDL Cholesterol 14 mg/dL (40-59) L 12/14/17 21:15 Cholesterol/HDL Ratio 7.71 % 12/14/17 21:15 Urine Color Yellow (Yellow) 12/15/17 15:28 Urine Turbidity Clear (Clear) 12/15/17 15:28 Urine pH 5.0 (5.0-7.0) 12/15/17 15:28 Ur Specific [place] 1.006 (1.003-1.030) 12/15/17 15:28 Urine Protein <15 mg/dl mg/dL (Negative) 12/15/17 15:28 Urine Glucose (UA) Neg mg/dL (Negative) 12/15/17 15:28 Urine Ketones Neg mg/dL (Negative) 12/15/17 15:28 Urine Blood Sm (Negative) 12/15/17 15:28 Urine Nitrite Neg (Negative) 12/15/17 15:28 Urine Bilirubin Neg (Negative) 12/15/17 15:28 Urine Urobilinogen < 2.0 mg/dL (<2.0) 12/15/17 15:28 Ur Leukocyte Esterase Neg (Negative) 12/15/17 15:28 Urine Osmolality 336 Mosm/kg 12/15/17 15:28 Urine Creatinine 17.4 mg/dL (0.1-20.0) 12/15/17 15:28 Urine Sodium 106 mmol/L 12/15/17 15:28 Urine Potassium 21.23 mmol/L 12/15/17 15:28 Urine Chloride 116.5 mmolL (110-250) 12/15/17 15:28
--- NOTE | 2017-12-20 16:09 | Cat Scan Report ---
FINAL REPORT PROCEDURE: CT HEAD/BRAIN WO CON TECHNIQUE: Computerized tomography of the head was performed without contrast material. HISTORY: facial drooping/ drooling COMPARISON: No prior studies are available for comparison. FINDINGS: Brain: There is no evidence of intracranial hemorrhage. No parenchymal hemorrhage is seen. No mass lesions or mass effect is identified. No abnormal extra-axial fluid collections or masses are seen. Old lacunar infarcts visualized in the right and left basal ganglia. There is an area of decreased density visualized in the midportion of the left temporal lobe superiorly seen on image 22 series 2 axial image. This may represent a subacute or chronic area of encephalomalacia. There is some decreased density seen in the periventricular white matter without mass effect. This is fairly symmetric and does not exhibit any mass effect consistent with gliosis probably on the basis of microvascular disease or white matter changes of aging. Ventricles: The ventricles, sulcal pattern and fissures are prominent consistent with atrophy. Bones: No evidence of acute fracture. Paranasal sinuses: There is opacification 1 of the anterior ethmoid air cells on the right. There also nodular mucosal thickening medial aspect of the right frontal sinus. Visualized portions of the paranasal sinuses otherwise are clear. Mastoid air cells: clear IMPRESSION: There is evidence of mild atrophy and there appears to be mild to moderate gliosis. There appear to be several old lacunar infarcts in the right and left basal ganglia. Small area of encephalomalacia appears to be visualized in the midportion of the left temporal lobe superiorly. The appearance suggest subacute or possibly chronic area of encephalomalacia. If clinically indicated MRI of the brain could be obtained for further evaluation. No evidence of intracranial hemorrhage. Mild paranasal sinus disease as described.
--- NOTE | 2017-12-20 18:25 | Progress Note ---
Assessment and Plan - Patient Problems (1) Dissection of descending thoracic aorta Current Visit: Yes Status: Acute Plan to address problem: Linear echodensity in the thoracic descending aorta, of uncertain significance. We will get vascular surgery consultation for further assessment of the suspected dissection of the descending thoracic aorta. (2) Acute on chronic systolic heart failure Current Visit: Yes Status: Acute Plan to address problem: Continue medical therapy for chronic systolic heart failure. (3) Atrial fibrillation Current Visit: Yes Status: Acute Plan to address problem: Rate control of atrial fibrillation, followed by oral anticoagulation therapy when feasible. (4) Moderate to severe pulmonary hypertension Current Visit: Yes Status: Acute Plan to address problem: Pulmonary consultation for further assessment and management of severe pulmonary hypertension and evidence of cor pulmonale. Subjective Date of service: 12/20/17 Principal diagnosis: CHF Interval history: The patient is lethargic but breathing comfortably, not very communicative. Objective Vital Signs Temp Pulse Resp BP Pulse Ox 12/20/17 10:00 86 12/20/17 04:00 97.9 F 89 18 106/47 94 12/19/17 22:08 97.3 F L 79 18 109/53 95 12/19/17 20:02 76 18 - Physical Examination General: Cachectic HEENT: Positive: PERRL Neck: Positive: neck supple Cardiac: Positive: Reg Rate and Rhythm Lungs: Positive: Decreased Breath Sounds Neuro: Positive: Weakness Abdomen: Positive: Soft Skin: Positive: Clear Extremities: Present: edema (trace) - Labs and Meds CBC 12/20/17 Range/Units 09:12 WBC 7.9 (4.5-11.0) K/mm3 RBC 3.86 (3.65-5.03) M/mm3 Hgb 10.8 L (11.8-15.2) gm/dl Hct 32.7 L (35.5-45.6) % Plt Count 115 L (140-440) K/mm3 Comprehensive Metabolic Panel 12/20/17 Range/Units 09:12 Sodium 138 (137-145) mmol/L Potassium 3.3 L (3.6-5.0) mmol/L Chloride 93.7 L (98-107) mmol/L Carbon Dioxide 21 L (22-30) mmol/L BUN 97 H (9-20) mg/dL Creatinine 6.4 H (0.8-1.5) mg/dL Glucose 101 H (75-100) mg/dL Calcium 8.5 (8.4-10.2) mg/dL
[2017-12-21 04:46] LABS: Hematocrit 32.1 % (35.5-45.6); Hemoglobin 10.6 gm/dl (11.8-15.2); Mean Corpuscular HGB Conc 33 % (32-34); Mean Corpuscular Hemoglobin 28 pg (28-32); Mean Corpuscular Volume 85 fl (84-94); Platelet Count 108 K/mm3 (140-440); Red Blood Count 3.78 M/mm3 (3.65-5.03); Red Cell Distribution Width 16.3 % (13.2-15.2)
[2017-12-21 05:06] LABS: Calcium 8.2 mg/dL (8.4-10.2)
[2017-12-21] MEDS: ISORDIL TITRADOSE PO SCH ×2 (05:17→15:30)
[2017-12-21] MEDS: APRESOLINE PO SCH ×2 (05:17→15:30)
--- NOTE | 2017-12-21 09:26 | Progress Note ---
Assessment and Plan Impression: * Acute kidney injury secondary to cardiorenal syndrome * Acute systolic heart failure * Cardiomyopathy - LVEF 20% * Anasarca * Atrial fibrillation * Nonsustained VTach * Pulmonary hypertension * Type II DM * Hypokalemia * Encephalopathy - likely secondary to uremia Plan: * Family declined dialysis - see note 12/18. Patient now with decline in mental status and no UOP x 48 hours despite Lasix and Albumin . * Apparently he has been made a DNR but family members and attending physician still to sign * Dr. Castle had attempted to contact family member (Camilla Staples at ) but number was incorrect. She had also spoken with another family member yesterday. They had also declined dialysis * Milrinone gtt per cardiology * Replete lytes prn * Avoid potential nephrotoxins * Strict I/O * Prognosis is poor. Consider palliative care Subjective Date of service: 12/21/17 Principal diagnosis: CHF Interval history: Patient is currently in the ICU. Currently not on any drips. Lethargic. Not answering any questions. Objective - Vital Signs Vital signs: Vital Signs - 12hr 12/20/17 12/20/17 12/20/17 22:00 22:01 22:02 Temperature Pulse Rate 76 88 88 Pulse Rate [ Apical] Respiratory Rate Blood Pressure 104/47 104/47 104/47 O2 Sat by Pulse Oximetry 12/20/17 12/20/17 12/20/17 23:34 23:40 23:50 Temperature Pulse Rate 76 74 69 Pulse Rate [ Apical] Respiratory 16 18 11 L Rate Blood Pressure 111/50 108/59 O2 Sat by Pulse 91 96 Oximetry 12/21/17 12/21/17 12/21/17 00:00 00:11 00:21 Temperature Pulse Rate 73 75 77 Pulse Rate [ Apical] Respiratory 20 16 12 Rate Blood Pressure 108/59 100/53 O2 Sat by Pulse 98 98 99 Oximetry 12/21/17 12/21/17 12/21/17 00:31 00:41 00:51 Temperature Pulse Rate 78 77 77 Pulse Rate [ Apical] Respiratory 18 16 16 Rate Blood Pressure 100/53 100/53 100/53 O2 Sat by Pulse 95 98 98 Oximetry 12/21/17 12/21/17 12/21/17 01:01 01:11 01:21 Temperature Pulse Rate 72 71 77 Pulse Rate [ Apical] Respiratory 17 18 12 Rate Blood Pressure 101/48 101/48 101/48 O2 Sat by Pulse 96 98 98 Oximetry 12/21/17 12/21/17 12/21/17 01:30 01:41 01:51 Temperature Pulse Rate 68 74 74 Pulse Rate [ Apical] Respiratory 19 15 14 Rate Blood Pressure 101/48 101/48 101/48 O2 Sat by Pulse 98 98 98 Oximetry 12/21/17 12/21/17 12/21/17 02:00 02:11 02:21 Temperature Pulse Rate 74 73 74 Pulse Rate [ Apical] Respiratory 16 22 15 Rate Blood Pressure 100/51 100/51 100/51 O2 Sat by Pulse 98 97 96 Oximetry 12/21/17 12/21/17 12/21/17 02:31 02:41 02:51 Temperature Pulse Rate 69 74 74 Pulse Rate [ Apical] Respiratory 13 20 18 Rate Blood Pressure 100/51 100/51 100/51 O2 Sat by Pulse 96 97 97 Oximetry 12/21/17 12/21/17 12/21/17 03:00 03:11 03:21 Temperature Pulse Rate 72 71 76 Pulse Rate [ Apical] Respiratory 15 19 17 Rate Blood Pressure 106/45 106/45 106/45 O2 Sat by Pulse 95 96 96 Oximetry 12/21/17 12/21/17 12/21/17 03:31 03:41 03:51 Temperature Pulse Rate 72 71 70 Pulse Rate [ Apical] Respiratory 16 14 18 Rate Blood Pressure 106/45 106/45 106/45 O2 Sat by Pulse 96 95 97 Oximetry 12/21/17 12/21/17 12/21/17 04:00 04:01 04:11 Temperature 97.0 F L Pulse Rate 80 71 Pulse Rate [ 70 Apical] Respiratory 15 17 18 Rate Blood Pressure 106/45 106/45 O2 Sat by Pulse 97 96 98 Oximetry 12/21/17 12/21/17 12/21/17 04:21 04:31 04:41 Temperature Pulse Rate 66 64 70 Pulse Rate [ Apical] Respiratory 17 16 15 Rate Blood Pressure 107/44 107/44 107/44 O2 Sat by Pulse 97 98 96 Oximetry 12/21/17 12/21/17 12/21/17 04:51 05:00 05:11 Temperature Pulse Rate 75 69 71 Pulse Rate [ Apical] Respiratory 16 16 15 Rate Blood Pressure 107/44 85/44 85/44 O2 Sat by Pulse 96 96 96 Oximetry 12/21/17 12/21/17 12/21/17 05:21 05:31 05:41 Temperature Pulse Rate 72 70 63 Pulse Rate [ Apical] Respiratory 15 15 16 Rate Blood Pressure 83/42 90/33 90/33 O2 Sat by Pulse 95 96 95 Oximetry 12/21/17 12/21/17 12/21/17 05:51 06:00 07:59 Temperature 98.0 F Pulse Rate 67 65 Pulse Rate [ Apical] Respiratory 17 15 Rate Blood Pressure 90/33 88/38 O2 Sat by Pulse 95 93 Oximetry - General Appearance General appearance: well-developed, well-nourished, appears stated age EENT: PERRL, mucous membranes moist Neck: no JVD, no thyromegaly, no carotid bruit, supple Respiratory: Present: Clear to Ascultation Cardiology: irregularly irregular Gastrointestinal: normal, normoactive bowel sounds Integumentary: other (1+ edema ) - Lab 12/21/17 03:58 12/21/17 03:58 Most recent lab results Calcium 8.2 mg/dL (8.4-10.2) L 12/21/17 03:58 Phosphorus 4.20 mg/dL (2.5-4.5) 12/14/17 22:11 Magnesium 2.20 mg/dL (1.7-2.3) 12/20/17 09:12 Urine Creatinine 17.4 mg/dL (0.1-20.0) 12/15/17 15:28 Urine Sodium 106 mmol/L 12/15/17 15:28
[2017-12-21] MEDS: HumaLOG SUB-Q SCH ×3 (09:40→19:00)
[2017-12-21] MEDS: LANTUS SUB-Q SCH (09:52)
[2017-12-21] MEDS: COREG PO SCH (10:20)
[2017-12-21] MEDS: ELIQUIS PO SCH (10:21)
[2017-12-21] MEDS: PROCARDIA XL PO SCH (10:21)
[2017-12-21] MEDS: K-DUR PO SCH (10:21)
--- NOTE | 2017-12-21 12:46 | Progress Note ---
Assessment and Plan Assessment and plan: Acute kidney injury secondary to cardiorenal syndrome. Family declined dialysis - see note 12/18. Patient now with decline in mental status and no UOP x 48 hours despite Lasix and Albumin . Dissection of descending thoracic aorta. Patient with linear echodensity in the thoracic descending aorta of uncertain significance. Acute systolic heart failure. Patient with Cardiomyopathy - LVEF 20%. Continue milrinone drip per cardiology Anasarca. As above Atrial fibrillation. Continue medical therapy and rate control. Anticoagulation per cardiology. Nonsustained VTach Moderate to severe Pulmonary hypertension. Pulmonary following Type II DM. Continue Accu-Cheks and sliding scale insulin Hypokalemia. Replete potassium Metabolic Encephalopathy - etiology likely secondary to uremia Disposition. Family and patient are refusing hemodialysis, therefore, patient will have hospice evaluation. We'll transfer to the floor. I discussed the case with the brother, [place]. Patient is DO NOT RESUSCITATE. History Interval history: Nursing reports patient refusing hemodialysis. Hospitalist Physical - Constitutional Vitals: Temp Pulse Resp BP Pulse Ox 98.0 F 70 14 89/45 97 12/21/17 07:59 12/21/17 12:21 12/21/17 12:21 12/21/17 12:21 12/21/17 12:21 General appearance: Present: mild distress - EENT Eyes: Present: PERRL, EOM intact ENT: hearing intact, clear oral mucosa, dentition normal - Neck Neck: Present: supple, normal ROM - Respiratory Respiratory effort: normal Respiratory: bilateral: CTA - Cardiovascular Rhythm: regular Heart Sounds: Present: S1 & S2. Absent: gallop, rub - Extremities Extremities: no ischemia, No edema, Full ROM - Abdominal General gastrointestinal: soft, non-tender, non-distended, normal bowel sounds - Integumentary Integumentary: Present: clear, warm, dry - Neurologic Neurologic: CNII-XII intact, moves all extremities Results - Labs CBC & Chem 7: 12/21/17 03:58 12/21/17 03:58 Labs: Laboratory Last Values WBC 7.1 K/mm3 (4.5-11.0) 12/21/17 03:58 RBC 3.78 M/mm3 (3.65-5.03) 12/21/17 03:58 Hgb 10.6 gm/dl (11.8-15.2) L 12/21/17 03:58 Hct 32.1 % (35.5-45.6) L 12/21/17 03:58 MCV 85 fl (84-94) 12/21/17 03:58 MCH 28 pg (28-32) 12/21/17 03:58 MCHC 33 % (32-34) 12/21/17 03:58 RDW 16.3 % (13.2-15.2) H 12/21/17 03:58 Plt Count 108 K/mm3 (140-440) L 12/21/17 03:58 Lymph % (Auto) 5.4 % (13.4-35.0) L 12/16/17 04:38 Ada % (Auto) 11.6 % (0.0-7.3) H 12/16/17 04:38 Eos % (Auto) 0.5 % (0.0-4.3) 12/16/17 04:38 Baso % (Auto) 0.1 % (0.0-1.8) 12/16/17 04:38 Lymph # 0.6 K/mm3 (1.2-5.4) L 12/16/17 04:38 Ada # 1.2 K/mm3 (0.0-0.8) H 12/16/17 04:38 Eos # 0.1 K/mm3 (0.0-0.4) 12/16/17 04:38 Baso # 0.0 K/mm3 (0.0-0.1) 12/16/17 04:38 Seg Neutrophils % 82.4 % (40.0-70.0) H 12/16/17 04:38 Seg Neutrophils # 8.6 K/mm3 (1.8-7.7) H 12/16/17 04:38 PT 19.2 Sec. (12.2-14.9) H 12/14/17 21:19 INR 1.52 (0.87-1.13) H 12/14/17 21:19 APTT 30.2 Sec. (24.2-36.6) 12/14/17 21:19 D-Dimer 5306.46 ng/mlDDU (0-234) H 12/14/17 22:17 VBG pH 7.288 (7.320-7.420) L 12/14/17 21:15 Sodium 142 mmol/L (137-145) 12/21/17 03:58 Potassium 3.6 mmol/L (3.6-5.0) 12/21/17 03:58 Chloride 96.5 mmol/L (98-107) L 12/21/17 03:58 Carbon Dioxide 20 mmol/L (22-30) L 12/21/17 03:58 Anion Gap 29 mmol/L 12/21/17 03:58 BUN 104 mg/dL (9-20) H 12/21/17 03:58 Creatinine 6.9 mg/dL (0.8-1.5) H 12/21/17 03:58 Estimated GFR 9 ml/min 12/21/17 03:58 BUN/Creatinine Ratio 15 % 12/21/17 03:58 Glucose 102 mg/dL (75-100) H 12/21/17 03:58 POC Glucose 122 (70-105) H 12/21/17 12:42 Calcium 8.2 mg/dL (8.4-10.2) L 12/21/17 03:58 Phosphorus 4.20 mg/dL (2.5-4.5) 12/14/17 22:11 Magnesium 2.20 mg/dL (1.7-2.3) 12/20/17 09:12 Total Creatine Kinase 109 units/L (55-170) 12/15/17 12:20 CK-MB (CK-2) 4.9 ng/mL (0.0-4.0) H 12/15/17 12:20 CK-MB (CK-2) Rel Index 4.4 (0-4) H 12/15/17 12:20 Troponin T 0.030 ng/mL (0.00-0.029) H D 12/15/17 12:20 NT-Pro-B Natriuret Pep 04062 pg/mL (0-900) H 12/15/17 04:30 Triglycerides 99 mg/dL (2-149) 12/14/17 21:15 Cholesterol 108 mg/dL (50-199) 12/14/17 21:15 LDL Cholesterol Direct 53 mg/dL (50-130) 12/14/17 21:15 HDL Cholesterol 14 mg/dL (40-59) L 12/14/17 21:15 Cholesterol/HDL Ratio 7.71 % 12/14/17 21:15 Urine Color Yellow (Yellow) 12/15/17 15:28 Urine Turbidity Clear (Clear) 12/15/17 15:28 Urine pH 5.0 (5.0-7.0) 12/15/17 15:28 Ur Specific Ramsey 1.006 (1.003-1.030) 12/15/17 15:28 Urine Protein <15 mg/dl mg/dL (Negative) 12/15/17 15:28 Urine Glucose (UA) Neg mg/dL (Negative) 12/15/17 15:28 Urine Ketones Neg mg/dL (Negative) 12/15/17 15:28 Urine Blood Sm (Negative) 12/15/17 15:28 Urine Nitrite Neg (Negative) 12/15/17 15:28 Urine Bilirubin Neg (Negative) 12/15/17 15:28 Urine Urobilinogen < 2.0 mg/dL (<2.0) 12/15/17 15:28 Ur Leukocyte Esterase Neg (Negative) 12/15/17 15:28 Urine Osmolality 336 Mosm/kg 12/15/17 15:28 Urine Creatinine 17.4 mg/dL (0.1-20.0) 12/15/17 15:28 Urine Sodium 106 mmol/L 12/15/17 15:28 Urine Potassium 21.23 mmol/L 12/15/17 15:28 Urine Chloride 116.5 mmolL (110-250) 12/15/17 15:28
--- NOTE | 2017-12-21 13:43 | Progress Note ---
Assessment and Plan - Patient Problems (1) Dissection of descending thoracic aorta Current Visit: Yes Status: Acute Plan to address problem: Linear echodensity in the thoracic descending aorta, of uncertain significance. We will get vascular surgery consultation for further assessment of the suspected dissection of the descending thoracic aorta. (2) Acute on chronic systolic heart failure Current Visit: Yes Status: Acute Plan to address problem: Continue medical therapy for chronic systolic heart failure. (3) Moderate to severe pulmonary hypertension Current Visit: Yes Status: Acute Plan to address problem: Pulmonary consultation for further assessment and management of severe pulmonary hypertension and evidence of cor pulmonale. (4) Atrial fibrillation Current Visit: Yes Status: Acute Plan to address problem: Rate control of atrial fibrillation, followed by oral anticoagulation therapy when feasible. Subjective Date of service: 12/21/17 Principal diagnosis: CHF Interval history: Patient is lethargic and sleepy, in no acute respiratory distress. He was transferred to the CCU for worsening renal failure. Objective Vital Signs Temp Pulse Pulse Resp BP BP Pulse Ox 12/21/17 12:21 70 14 89/45 97 12/21/17 12:11 71 14 89/45 97 12/21/17 12:00 67 15 89/45 94 12/21/17 11:51 71 14 89/41 97 12/21/17 11:41 71 13 89/41 97 12/21/17 11:31 70 16 89/41 96 12/21/17 11:21 67 14 89/41 97 12/21/17 11:11 71 15 89/41 97 12/21/17 11:00 67 16 89/41 94 12/21/17 10:51 69 16 96/45 97 12/21/17 10:41 71 14 96/45 97 12/21/17 10:31 67 17 96/45 97 12/21/17 10:21 78 16 96/45 96 12/21/17 10:20 73 96/45 12/21/17 10:11 74 14 96/45 96 12/21/17 10:06 97 12/21/17 10:00 74 15 96/45 93 12/21/17 09:51 72 16 97/45 96 12/21/17 09:41 70 15 97/42 96 12/21/17 09:31 72 16 97/42 96 12/21/17 09:21 69 16 97/42 96 04/03/18 09:11 68 18 97/45 96 04/03/18 09:00 70 17 97/45 93 04/03/18 08:51 69 19 97/42 95 04/03/18 08:41 73 18 97/42 96 04/03/18 08:31 68 18 97/42 97 04/03/18 08:21 69 14 97/42 97 04/03/18 08:11 67 16 97/42 96 04/03/18 08:00 73 14 97/42 93 04/03/18 07:59 98.0 F 04/03/18 07:51 67 15 95/40 95 04/03/18 07:41 68 20 95/40 95 04/03/18 07:31 69 16 95/40 95 04/03/18 07:20 68 16 95/40 95 04/03/18 07:11 71 16 95/40 95 04/03/18 07:00 68 15 95/40 92 04/03/18 06:51 72 14 97/41 94 04/03/18 06:41 62 16 97/41 95 04/03/18 06:31 71 14 88/38 95 04/03/18 06:21 64 16 88/38 95 04/03/18 06:11 68 15 88/38 96 04/03/18 06:00 65 15 88/38 93 04/03/18 05:51 67 17 90/33 95 04/03/18 05:41 63 16 90/33 95 04/03/18 05:31 70 15 90/33 96 04/03/18 05:21 72 15 83/42 95 04/03/18 05:11 71 15 85/44 96 04/03/18 05:00 69 16 85/44 96 04/03/18 04:51 75 16 107/44 96 04/03/18 04:41 70 15 107/44 96 04/03/18 04:31 64 16 107/44 98 04/03/18 04:21 66 17 107/44 97 04/03/18 04:11 71 18 106/45 98 04/03/18 04:01 80 17 106/45 96 04/03/18 04:00 97.0 F L 70 15 97 04/03/18 03:51 70 18 106/45 97 04/03/18 03:41 71 14 106/45 95 04/03/18 03:31 72 16 106/45 96 18 03:21 76 17 106/45 96 12/21/17 03:11 71 19 106/45 96 12/21/17 03:00 72 15 106/45 95 18 02:51 74 18 100/51 97 12/21/17 02:41 74 20 100/51 97 12/21/17 02:31 69 13 100/51 96 12/21/17 02:21 74 15 100/51 96 12/21/17 02:11 73 22 100/51 97 12/21/17 02:00 74 16 100/51 98 12/21/17 01:51 74 14 101/48 98 12/21/17 01:41 74 15 101/48 98 12/21/17 01:30 68 19 101/48 98 12/21/17 01:21 77 12 101/48 98 12/21/17 01:11 71 18 101/48 98 12/21/17 01:01 72 17 101/48 96 12/21/17 00:51 77 16 100/53 98 12/21/17 00:41 77 16 100/53 98 12/21/17 00:31 78 18 100/53 95 12/21/17 00:21 77 12 100/53 99 12/21/17 00:11 75 16 98 12/21/17 00:00 73 20 108/59 98 12/20/17 23:50 69 11 L 108/59 96 12/20/17 23:40 74 18 111/50 91 12/20/17 23:34 76 16 12/20/17 22:02 88 104/47 12/20/17 22:01 88 104/47 12/20/17 22:00 76 104/47 12/20/17 19:50 97.3 F L 88 18 104/47 94 - Physical Examination General: No Apparent Distress, Cachectic HEENT: Positive: PERRL Neck: Positive: neck supple Cardiac: Positive: Irregularly Regular Lungs: Positive: Decreased Breath Sounds Neuro: Positive: Weakness Abdomen: Positive: Soft Skin: Positive: Clear Extremities: Present: edema (trace) - Labs and Meds CBC 12/21/17 Range/Units 03:58 WBC 7.1 (4.5-11.0) K/mm3 RBC 3.78 (3.65-5.03) M/mm3 Hgb 10.6 L (11.8-15.2) gm/dl Hct 32.1 L (35.5-45.6) % Plt Count 108 L (140-440) K/mm3 Comprehensive Metabolic Panel 12/21/17 Range/Units 03:58 Sodium 142 (137-145) mmol/L Potassium 3.6 (3.6-5.0) mmol/L Chloride 96.5 L (98-107) mmol/L Carbon Dioxide 20 L (22-30) mmol/L BUN 104 H (9-20) mg/dL Creatinine 6.9 H (0.8-1.5) mg/dL Glucose 102 H (75-100) mg/dL Calcium 8.2 L (8.4-10.2) mg/dL
--- NOTE | 2017-12-21 17:22 | Event Note ---
Date: 12/21/17 This pt was admitted via the [facility] ER due to Hypertensive urgency on 12/14/17. An echocardiogram was performed and revealed a abnormal aortic lesion concerning for possible descending aortic dissection. An arterial duplex was performed by the vascular lab. The preliminary report suggest: AORTA DOPPLER COMPLETED THERE APPEARS TO BE DISSECTING PLAQUE IN THE MD AO DS AO MEASURES 3.6CM X 4.4CM, PLAQUE ALSO NOTED IN DS AO DIFFICULT EXAM DUE TO PT HABITUS AND HEAVY RESPIRATIONS A vascular surgery consult has been requested to further evaluate. The pt is currently obtunded with a systolic BP in the 80's. His brother is at the bedside. We discussed his present circumstances. Typically we would order a CT angiogram, but unfortunately he has ARF. The contrast from the study would likely result in further deterioration of his kidney function. The family has discussed his condition, and would like to proceed with comfort measures. Therefore we would not recommend further vascular work up at this time. We will see again as needed. Discussed with Cardiology.
[2017-12-22] MEDS: APRESOLINE PO SCH ×2 (00:55→06:42)
[2017-12-22] MEDS: COREG PO SCH ×2 (00:56→10:56)
[2017-12-22] MEDS: HumaLOG SUB-Q SCH ×2 (00:57→07:50)
[2017-12-22] MEDS: ISORDIL TITRADOSE PO SCH ×2 (00:59→06:42)
[2017-12-22] MEDS: ELIQUIS PO SCH ×2 (00:59→10:56)
[2017-12-22] MEDS: LANTUS SUB-Q SCH (08:10)
--- NOTE | 2017-12-22 08:14 | Discharge Summary ---
Providers - Providers Date of Admission: 12/15/17 02:06 Date of discharge: 12/22/17 Attending physician: MAYO THIBODEAUX 12/15/17 11:53 Consult to Physician [CONS] Routine Comment: spoke to Hope at Dr. Long's office at 12:30- [facility] Consulting Provider: JARED NUÑEZ Physician Instructions: Reason For Exam: hyperkalemia 12/16/17 09:20 Consult to Physician [CONS] Routine Comment: PATRICIO Consulting Provider: ALEJANDRO BURGER Physician Instructions: CAME BY TO SEE THE PATIENT. Reason For Exam: afib, chf, pt known to you 12/19/17 07:46 Speech Therapy Evaluation and Treat [CONS] Routine Reason For Exam: cough with meals 12/20/17 15:44 Consult to Physician [CONS] Routine Comment: Consulting Provider: JUNE CHAMBERS Physician Instructions: Reason For Exam: Severe ARF, NSVT, d/w Dr. Chambers yesterday 12/20/17 15:49 Consult to Ethics Committee [CONS] Routine Reason For Exam: needing hemodialysis, needing family info 12/20/17 18:26 Consult to Physician [CONS] Routine Comment: Consulting Provider: ENID TADEO Physician Instructions: Reason For Exam: Descending thoracic dissection Primary care physician: LILIBETH HOLLINGSWORTH Hospitalization Reason for admission: SOB Condition: Fair Hospital course: Patient is a 77-year-old man with a history of hypertension, diabetes mellitus, dilated cardiomyopathy, CHF and atrial fibrillation on warfarin who presented with shortness of breath. He was found to be in DKA and started on insulin drip. The patient received IV fluid hydration and IV insulin drip with resolution of DKA. Patient was also noted to have diagnosis of acute hypoxic respiratory failure secondary to DKA, acute on chronic systolic heart failure and atrial fibrillation. Patient underwent VQ scan which showed low probability for PE. However, patient was noted to have end-stage cardiomyopathy and started on IV diuresis as well as milrinone and Primacor drips initiated by cardiology in consultation. Also, an echocardiogram was performed and revealed a abnormal aortic lesion concerning for possible descending aortic dissection. An arterial duplex was performed by the vascular lab. The preliminary report suggested enlarged thoracic aorta with evidence of a linear echodensity. Therefore, an aortic ultrasound was completed which showed dissecting plaque in the MD AO, DS AO MEASURES 3.6CM X 4.4CM, PLAQUE ALSO NOTED IN DS AO however DIFFICULT EXAM DUE TO PT HABITUS AND HEAVY RESPIRATIONS. Other complications during hospital stay included acute on chronic kidney disease stage IV secondary to cardiorenal syndrome that was present on admission. Nephrology saw the patient in consultation. Unfortunately, patient's renal function continued to worsen throughout hospitalization. Nephrology (Dr. Castle) spoke with multiple family members at the bedside on 12/18/17 and the family decided against hemodialysis. Patient's mental status continued to deteriorate secondary to metabolic encephalopathy. Family later agreed to DO NOT RESUSCITATE and hospice consultation was obtained. Dedicated discharge time 34 minutes. Disposition: DC-[id number] HOSPICE ([facility]) Time spent for discharge: 34 Core Measure Documentation - Palliative Care Palliative Care/ Comfort Measures: Hospice Care - Core Measures Any of the following diagnoses?: heart failure - Heart Failure Discharge Requirements SHANTI/ARB for LVSD if EF <40%: No Reason for no SHANTI/ARB: Palliative care Beta edwin at discharge: No Reason for no beta edwin on DC: Palliative care Exam - Constitutional Vitals: Temp Pulse Resp BP Pulse Ox 98.6 F 73 22 110/52 98 12/22/17 01:25 12/22/17 01:25 12/22/17 01:25 12/22/17 01:25 12/22/17 08:03 General appearance: Present: mild distress, well-nourished - EENT Eyes: Present: PERRL ENT: hearing intact, clear oral mucosa - Neck Neck: Present: supple, normal ROM - Respiratory Respiratory effort: normal Respiratory: bilateral: CTA - Cardiovascular Heart Sounds: Present: S1 & S2. Absent: rub, click - Extremities Extremities: pulses symmetrical, No edema Peripheral Pulses: within normal limits - Abdominal General gastrointestinal: Present: soft, non-tender, non-distended, normal bowel sounds Male genitourinary: Present: normal - Integumentary Integumentary: Present: clear, warm, dry - Musculoskeletal Musculoskeletal: gait normal, strength equal bilaterally - Psychiatric Psychiatric: appropriate mood/affect, intact judgment & insight - Neurologic Neurologic: CNII-XII intact, moves all extremities Plan Activity: advance as tolerated Weight Bearing Status: Weight Bear as Tolerated Follow up with: LILIBETH HOLLINGSWORTH MD [Primary Care Provider] - 3-5 Days
[2017-12-22 08:20] VITALS: BP 123/63
--- NOTE | 2017-12-22 09:34 | Progress Note ---
Assessment and Plan Impression: * Acute kidney injury secondary to cardiorenal syndrome * Acute systolic heart failure * Cardiomyopathy - LVEF 20% * Anasarca * Atrial fibrillation * Nonsustained VTach * Pulmonary hypertension * Type II DM * Hypokalemia * Encephalopathy - likely secondary to uremia Plan: * Family declined dialysis . * Patient is not a DO NOT RESUSCITATE. Awaiting hospice placement. * Family members do not want to pursue dialysis. * Replete lytes prn * Avoid potential nephrotoxins * Strict I/O * Prognosis is poor. * Shall sign off for now. Please recall if needed Subjective Date of service: 12/22/17 Principal diagnosis: CHF Interval history: Patient has been transferred out of ICU. Remains lethargic at this time. He is not a DO NOT RESUSCITATE. Awaiting hospice placement. Family members still refusing dialysis Objective - Vital Signs Vital signs: Vital Signs - 12hr 12/21/17 12/22/17 12/22/17 22:00 00:55 00:56 Temperature Pulse Rate 69 69 Pulse Rate [ 69 Right Dorsalis Pedis] Respiratory Rate Blood Pressure 108/53 108/53 O2 Sat by Pulse 96 Oximetry 12/22/17 12/22/17 12/22/17 00:59 01:25 07:44 Temperature 98.6 F 98.6 F Pulse Rate 69 73 85 Pulse Rate [ Right Dorsalis Pedis] Respiratory 22 20 Rate Blood Pressure 110/52 123/63 O2 Sat by Pulse 97 99 Oximetry 12/22/17 08:03 Temperature Pulse Rate Pulse Rate [ Right Dorsalis Pedis] Respiratory Rate Blood Pressure O2 Sat by Pulse 98 Oximetry - General Appearance General appearance: well-developed, well-nourished, appears stated age EENT: PERRL, mucous membranes moist Neck: no JVD, no thyromegaly, no carotid bruit, supple Respiratory: Present: Clear to Ascultation Cardiology: regular, normal heart rate, S1S2, no murmurs Gastrointestinal: normal, normoactive bowel sounds Integumentary: other (1+ edema ) - Lab 12/21/17 03:58 12/21/17 03:58 Most recent lab results Calcium 8.2 mg/dL (8.4-10.2) L 12/21/17 03:58 Phosphorus 4.20 mg/dL (2.5-4.5) 12/14/17 22:11 Magnesium 2.20 mg/dL (1.7-2.3) 12/20/17 09:12 Urine Creatinine 17.4 mg/dL (0.1-20.0) 12/15/17 15:28 Urine Sodium 106 mmol/L 12/15/17 15:28
--- NOTE | 2017-12-22 09:37 | Progress Note ---
Assessment and Plan Dissection of descending thoracic aorta Atrial fibrillation, rate control on eliquis for oral anticoagulation. Acute on chronic systolic heart failure Cor Pulmonale Nonischemic cardiomyopathy, EF 15-20% Hypertension DM Recommendations: Rate control and oral anticoagulation for atrial fibrillation. Medical therapy for his nonischemic cardiomyopathy. Subjective Date of service: 12/22/17 Principal diagnosis: CHF Interval history: Awaits hospice placement. Objective Vital Signs Temp Pulse Pulse Resp BP BP Pulse Ox 12/22/17 08:03 98 12/22/17 07:44 98.6 F 85 20 123/63 99 12/22/17 01:25 98.6 F 73 22 110/52 97 12/22/17 00:59 69 12/22/17 00:56 69 108/53 12/22/17 00:55 69 108/53 12/21/17 22:00 69 96 12/21/17 20:23 99.5 F 24 108/53 12/21/17 20:00 69 96 12/21/17 16:00 69 20 100/51 97 12/21/17 15:16 73 100/51 97 12/21/17 13:51 70 17 85/45 96 12/21/17 13:41 69 15 85/45 97 12/21/17 13:31 72 15 85/45 97 12/21/17 13:21 73 14 85/45 97 12/21/17 13:11 73 13 85/45 97 12/21/17 13:00 69 14 85/45 94 12/21/17 12:51 68 14 89/45 96 12/21/17 12:41 76 14 89/45 97 12/21/17 12:31 66 13 89/45 97 12/21/17 12:21 70 14 89/45 97 12/21/17 12:11 71 14 89/45 97 12/21/17 12:00 96.8 F L 67 15 89/45 94 12/21/17 11:51 71 14 89/41 97 12/21/17 11:41 71 13 89/41 97 12/21/17 11:31 70 16 89/41 96 12/21/17 11:21 67 14 89/41 97 12/21/17 11:11 71 15 89/41 97 12/21/17 11:00 67 16 89/41 94 12/21/17 10:51 69 16 96/45 97 04/03/18 10:41 71 14 96/45 97 12/21/17 10:31 67 17 96/45 97 12/21/17 10:21 78 16 96/45 96 12/21/17 10:20 73 96/45 12/21/17 10:11 74 14 96/45 96 12/21/17 10:06 97 12/21/17 10:00 74 15 96/45 93 12/21/17 09:51 72 16 97/45 96 12/21/17 09:41 70 15 97/42 96 - Physical Examination General: No Apparent Distress, Cachectic HEENT: Positive: PERRL Cardiac: Positive: irregularly irregular
[2017-12-22] MEDS: PROCARDIA XL PO SCH (10:57)
[2017-12-22] MEDS: K-DUR PO SCH (10:57)
--- NOTE | 2017-12-22 17:21 | Vascular Lab Report ---
Abdominal aortic duplex Reason for exam: Atherosclerosis of the aorta Comments: The aorta is patent with mildly elevated flow velocities. Maximum diameter of the aorta is 4.4 cm above the iliac artery bifurcation. This finding is consistent with an aneurysm. There appears to be a dissection within the aorta in the midportion. The aorta is somewhat tortuous as well. The common iliac arteries are patent bilaterally. Maximum diameter in the iliac arteries is 1.9 cm bilaterally. These findings are consistent with at least mild ectasia. Velocities are elevated in the right common iliac artery consistent with stenosis. Study was technically limited due to patient body habitus. Impression: 4.4 cm infrarenal abdominal aortic aneurysm. Suggestion of a dissection involving the midportion of the aorta. Ectasia of the iliac arteries bilaterally. Recommend CT angiography for further evaluation.
== END 2017-12-22 11:20 | disposition hospice, inpatient (51) | DRG 637 ==
LOC: ED 18:57 → CC1 12-15 02:06 → 2B-ACE 12-15 21:28 → 4A 12-16 18:55 → CC1 12-20 23:35 → 2B-ACE 12-21 15:25
PROVIDERS: ADMIT Internal Medicine; ATTEND Hospitalist
DX: E11.10 Type 2 diabetes mellitus with ketoacidosis without coma (principal); I50.23 Acute on chronic systolic (congestive) heart failure; N17.9 Acute kidney failure, unspecified; I13.0 Hypertensive heart and chronic kidney disease with heart failure and stage 1 through stage 4 chronic kidney disease, or unspecified chronic kidney disease; I42.9 Cardiomyopathy, unspecified; I47.2 Ventricular tachycardia; N18.4 Chronic kidney disease, stage 4 (severe); E87.5 Hyperkalemia; E83.51 Hypocalcemia; I16.0 Hypertensive urgency; I27.20 Pulmonary hypertension, unspecified; E11.65 Type 2 diabetes mellitus with hyperglycemia; D69.6 Thrombocytopenia, unspecified; I48.2 Chronic atrial fibrillation; Z66 Do not resuscitate; Z51.5 Encounter for palliative care; Z79.01 Long term (current) use of anticoagulants
CPT/HCPCS: 36415; 70450; 71046; 76770; 78582; 80048; 80061; 81003; 82436; 82550; 82553; 82570; 82805; 82962; 83735; 83880; 83935; 84100; 84133; 84300; 84484; 85025; 85027; 85379; 85610; 85730; 93005; 93010; 93306; 93979; 94640; 94760; 96365; 96372; 96375; A9540; A9558; J0610; J1644; J1815; J1940; J2260; P9047